=== PATIENT | female | born 1945 | race Caucasian/White ===

== ENCOUNTER 2016-11-13 12:10 | Inpatient (IN) | payer MEDICARE, OTHER ==
[~2016-11-13] VITALS: Ht 162.6 cm; Wt 120.1 kg
--- NOTE | ~2016-11-13 | CON ---
PATIENT'S NAME: JAYSON TUTTLE [facility] AGE: 71 Y [address] ROOM: [address] [address] LOCATION: GICU ADMIT DATE: 11/13/2016 Consultation DISCHARGE DATE: FAMILY PHYSICIAN: Alejandro Alanis MD ATTENDING PHYSICIAN: JELENA TO DATE OF CONSULTATION: 11/17/2016 REFERRING PHYSICIAN: YOKO MORALES MD REFERRING PROVIDER: Dr. Cox. REASON FOR CONSULTATION: Anemia. HISTORY OF PRESENT ILLNESS: This is a very pleasant 71-year-old female, who is well known to our service as she previously had been seen in August 2016. The patient at that time did undergo complete workup for anemia. She did undergo an upper endoscopy on 08/26/2016. At that time, whitish exudate along the length of the esophagus was washed and removed with underlying mucosa being normal. Scattered erosions, petechial hemorrhages, and erythema of the body and antrum were seen where multiple biopsies were done. The patient did undergo colonoscopy and found to have multiple polyps, though were not removed secondary to INR. The patient was brought back the next day on 08/27/2016. At that time, a limited prep was seen throughout the colon as polyps were removed via cold biopsy then polypectomy. A single semipedunculated polyp was found in the descending colon as well as hemostasis achieved with a hemostatic clip. Diverticulosis was also noted throughout the colon. The patient most recently was admitted to [facility] for hypotension after a round of hemodialysis. The patient did experience dizziness at this time as she was admitted for further workup. We were asked to see in consultation for the patient's anemia of chronic disease as well as positive Hemoccult stool. The patient was seen and examined. The patient denies any change in color of her bowel habits. She denies any evidence of blood loss. The patient denies any chest pain, chest pressure, shortness of breath, or weight loss. She does complain of some mild discomfort in her lower abdomen, though the patient does state that she had difficulty with urinating and was ultimately found to have UTI. The patient denies any acute abdominal pain, nausea, vomiting, or hematemesis. PAST MEDICAL HISTORY: Anemia of chronic disease; end-stage renal disease, on hemodialysis; history of chronic diastolic congestive heart failure; hypertension; diabetes mellitus PATIENT'S NAME: PARAGJYASON [facility] AGE: 71 Y [address] ROOM: [place] [address] LOCATION: GICU ADMIT DATE: 11/13/2016 Consultation DISCHARGE DATE: FAMILY PHYSICIAN: Alejandro Alanis MD ATTENDING PHYSICIAN: JELENA TO type 2, insulin dependent; diabetic neuropathy; diabetic nephropathy; hypothyroidism; nonobstructive coronary artery disease; history of sick sinus syndrome, status post pacemaker implantation; paroxysmal atrial fibrillation, on long-term anticoagulation in the form of Eliquis; esophagitis; history of decompensated heart failure with fluid overload; pulmonary hypertension; nonalcoholic steatohepatitis; and morbid obesity. PAST SURGICAL HISTORY: Cholecystectomy, appendectomy, tunneled dialysis catheter, placement of dual- chamber pacemaker implantation in 2014, right total knee arthroplasty, colonoscopy and upper endoscopy in August 2016. SOCIAL HISTORY: The patient is a resident at [facility]. She is . She has no history of alcohol, tobacco, or illicit drug use. FAMILY HISTORY: The patient's parents both had diabetes. ALLERGIES: OXYCODONE. CURRENT MEDICATIONS: Please refer to the medication administration record. REVIEW OF SYSTEMS: A 10-point review of systems was completed. All were negative except for those identified in the history of present illness. PHYSICAL EXAMINATION: GENERAL: This is a very pleasant 71-year-old female, seen in intensive care, lying in bed, who appears to be in no acute distress. VITAL SIGNS: Temperature 98.2, pulse 73, respirations of 27, blood pressure 102/52, and oxygen saturation is 96% on 3 L nasal cannula. SKIN: Bennett, warm, and dry. No jaundice. HEENT: Head is normocephalic and atraumatic. Pupils are equal, round, and reactive to light. Sclerae are clear. Nonicteric. Oral mucosa is pink and moist. No thyromegaly. NECK: Soft and supple. CARDIOVASCULAR: Regular. Normal S1 and S2. RESPIRATORY: Respirations even and unlabored. LUNGS: Clear to auscultation. ABDOMEN: Soft, round, nontender, and nondistended. Bowel sounds positive x4 quadrants. MUSCULOSKELETAL: No muscle weakness or atrophy. PATIENT'S NAME: PARAG [facility] AGE: 71 Y [address] ROOM: [place] [address] LOCATION: GICU ADMIT DATE: 11/13/2016 Consultation DISCHARGE DATE: FAMILY PHYSICIAN: Alejandro Alanis MD ATTENDING PHYSICIAN: JELENA TO EXTREMITIES: No clubbing or cyanosis. NEUROLOGIC: Grossly nonfocal. LABS AND DIAGNOSTICS: Laboratory obtained on 11/17/2016 showed a white blood cell count of 12.1, hemoglobin of 9.0, hematocrit of 29.4, and platelet of 170. Chemistry panel includes a glucose of 284, BUN of 37, creatinine of 3.3, sodium 126, potassium of 3.9, chloride of 93, CO2 of 19, albumin of 3.3, phosphorus of 4.4, and magnesium of 2.2. The patient did also have a CT of her thorax that is currently pending at this time. ASSESSMENT AND PLAN: Again, this is a very pleasant 71-year-old female with multiple comorbidities. We were asked to see in consultation for the patient's anemia as well as positive occult stool. The patient recently underwent a full anemia workup in August 2016 including an upper endoscopy and colonoscopy with multiple polyps noted. At this time, the patient's hemoglobin has been stable as we do recommend at this time to continue monitoring the hemoglobin. If acute blood loss is seen and/or drop in the patient's hemoglobin, further workup may be warranted, though no endoscopy is recommended at this time. We will continue to monitor the patient. This was discussed with Dr. Cox as he is in agreement as well. Thank you for this consult and allowing us to participate in the care of this patient. We will continue monitor, evaluate, and treat as appropriate. AGUEDA GARZA APRN FOR MD HOMA PETE/modl /[id number] d: 11/17/162010 t: 11/20/16 1303, CONSULTATION REPORT
--- NOTE | ~2016-11-13 | ECHO ---
Transthoracic Echocardiography Report (TTE) Demographics Patient Name JAYSON TUTTLE Date of Study 11/16/2016 Patient Number [id number] Visit Number [id number] Date of 1945 Room Number G6202 Gender Female Number Age 71 year(s) Referring Ariana Fuchs Cultural Historian Cate Reddy, Physician RT,RVT,RDCS Physician Interpreting Samiranjanaradha Moore Store Receiving Specialist Physician Supervising Ordering [facility] Patrick Fuchs MD, MD/MLP Physician Nurse Stress Fly Worker Conclusions Contractility Score Summary Normal Left Ventricular contractility was noted. Summary The estimated left ventricular ejection fraction is 60%. The left atrium is moderate to severely dilated Moderate concentric left ventricular hypertrophy. The right atrium is mildly dilated. Dilated IVC with poor inspiratory collapse consistent with elevated RA pressure. Mildly dilated right ventricle. Moderate tricuspid regurgitation by color Doppler. There is severe pulmonary hypertension. The pulmonary pressure (RVSP) is 68 mmHg. Procedure Type of Study TTE procedure:2D Echocardiogram, M-Mode, Doppler , Color Doppler. Procedure Date Date: 11/16/2016 Start: 11:55 AM Study Location: Inpatient Portable Technical Quality: Adequate visualization Indications:Hypotension. Additional Indications:sepsis Appropriate Use Criteria: 9 Patient Status: Routine HR: 70 bpm BP: 132/38 mmHg Allergies - No known allergies. M-Mode/2D Measurements LV Diastolic Dimension: 3.3 cm LV Systolic Dimension: 2.04 cm LV Septum Diastolic: 1.66 cm LV Septum Systolic: 2.28 cm LV PW Diastolic: 1.34 cm LV PW Systolic: 2.62 cm Cardiac Output: 2.92 l/min AO Root Dimension: 3.1 cm LA Dimension: 4.9 cm EF Estimated: 70 % LA volume: 91 ml RV Base: 4.8 cm LVOT: 1.8 cm RV Mid: 4.2 cm LVOT VTI: 16.4 cm RV Length: 7 cm LV Stroke volume: 41.71 ml TDI-S': 9.1 cm/s Doppler Measurements AV Peak Velocity: 1.37 m/s MV Peak E-Wave: 1.25 m/s AV Peak Gradient: 7.51 mmHg MV Peak A-Wave: 0.63 m/s AV Mean Gradient: 4 mmHg MV E/A Ratio: 1.99 LVOT Peak Velocity: 0.82 m/s MV P1/2t: 56 msec TR Gradient:32.49 mmHg PV Peak Velocity: 0.92 m/s Estimated RAP:10 mmHg PV Peak Gradient: 3.36 mmHg Estimated RVSP: 42 mmHg Estimated PASP: 42.49 mmHg E' Lateral Velocity: 0.11 m/s A' Lateral Velocity: 0.04 m/s MV E/E' Ratio: 11.2 Findings Left Ventricle Moderate concentric left ventricular hypertrophy. Right Ventricle Mildly dilated right ventricle. Left Atrium The left atrium is moderate to severely dilated Right Atrium The right atrium is mildly dilated. Dilated IVC with poor inspiratory collapse consistent with elevated RA pressure. Mitral Valve Mild mitral regurgitation by color Doppler. Mild to moderate mitral annular calcification. Aortic Valve The aortic valve is mildly sclerotic. Tricuspid Valve Moderate eccentric tricuspid regurgitation by color Doppler. There is severe pulmonary hypertension. The pulmonary pressure (RVSP) is 68 mmHg. Pulmonic Valve Trivial pulmonic valve regurgitation by color Doppler. Pericardial Effusion No evidence of pericardial effusion. Miscellaneous Visualized portions of the aortic root and ascending aorta appear normal in size. Pleural Effusion No evidence of pleural effusion. Contractility Score LV regional wall motion:(0-Non visualized 1-Normal 2-Hypokinesis 3-Akinesis 4-Dyskinesis 5-Aneurysm) Signature dtt: FLOR MONTEMAYOR dtd: 11/16/16 1155 Physician Self Edit
--- NOTE | ~2016-11-13 | DS ---
PATIENT'S NAME: JAYSON TUTTLE [facility] AGE: 71 Y [address] ROOM: [id number] [place], [place] [address] LOCATION: GPCU ADMIT DATE: 11/13/2016 Discharge Summary DISCHARGE DATE: FAMILY PHYSICIAN: Alejandro Alanis MD ATTENDING PHYSICIAN: Jelena Fournier PRINCIPAL DIAGNOSES: 1. Shock, secondary to sepsis versus volume depletion. 2. Adrenal insufficiency, leading to hypotension. 3. End-stage renal disease on hemodialysis. 4. Paroxysmal atrial fibrillation. 5. Lnscx-og-wrhcmvy anemia. 6. Hypertension. 7. Coronary artery disease. 8. Type 2 diabetes. HOSPITAL COURSE: This is a 71-year-old female with recurrent admissions to the hospital who initially presented with generalized malaise, fatigue, and hypotension and admitted for a sepsis workup. Initially urine studies did show some signs of an infection causing further hypotension; however, on further workup, this was not to be the case, but she did receive antibiotics for a few days until she was visited by ID speciality and antibiotics were stopped at that time. The patient from infection point of view did well even after antibiotics were stopped; however, her blood pressures continued to stay low, which required her to get admitted to the ICU on vasopressors. Due to her low blood pressures, dialyzing the patient for her dialysis schedule had been a challenge as well. Infectious workup several days following her admission continued to be negative as well. At that point, Stim test for adrenal insufficiency workup was conducted, which showed possible signs of an adrenal insufficiency that caused her persistent hypotension. At which point, I put the patient on stress-dose of steroids with Decadron, which the patient's blood pressure responded greatly to. I had been able to slowly taper the Decadron down and eventually switch it to p.o. prednisone 5 mg daily since yesterday and her blood pressure had been great since. At this point, the patient is to be discharge on low-dose prednisone 5 mg daily and is to follow up as outpatient with primary care physician for monitoring of her blood pressure. Of note, the patient's blood pressure over the last 2 days had been on the high-side and her home blood pressure medication are being resumed including increasing her metoprolol to 25 mg b.i.d. The patient during her hospitalization is also noted to be in paroxysmal AFib. Cardiology was involved in the case and rate was controlled with increasing her beta- pranav regimen and is also on amiodarone and the patient is rate-controlled and stable at this point on 25 metoprolol b.i.d. as well as amiodarone 200 mg daily. The patient was also worked up for anemia concerning for GI blood loss and had an EGD done, which showed a duodenal ulcer that was nonbleeding. The PATIENT'S NAME: JAYSON TUTTLE [facility] AGE: 71 Y [address] ROOM: [address] [place] [address] LOCATION: GPCU ADMIT DATE: 11/13/2016 Discharge Summary DISCHARGE DATE: FAMILY PHYSICIAN: Alejandro Alanis MD ATTENDING PHYSICIAN: Jelena Fournier patient's hemoglobin throughout her stays had stayed stable and Eliquis, which the patient is on at home, have been resumed at 5 mg b.i.d., and her hemoglobin had stayed stable. The patient overall clinically looks much, much better, blood pressures have been stable, and her clinical response to her blood pressures getting better is very consistent to the prednisone that continued to help her. The patient is also a long-time diabetic and outpatient regimen for her long-acting insulin was over 50 units b.i.d., but had been using 25 and then 30 units of Levemir nightly and I have increased this dose to 35 units nightly now and this is to be up titrated until her fasting blood sugars are less than at least 200. DISPOSITION: [facility]. FOLLOW UP: Follow up with Cardiology and Nephrology as well as PCP in 1-2 weeks. The patient is planned to be discharged from the hospital on 11/27/2016 and further additions to discharge summary per discharging physician on that date. JELENA FOURNIER MD BG/modl /[id number] d: 11/27/16 0530 t: 12/12/16 0925, DISCHARGE SUMMARY
--- NOTE | ~2016-11-13 | CON ---
PATIENT'S NAME: JAYSON TUTTLE [facility] AGE: 71 Y [address] ROOM: [place] [address] LOCATION: GICU ADMIT DATE: 11/13/2016 Consultation DISCHARGE DATE: FAMILY PHYSICIAN: Alejandro Alanis MD ATTENDING PHYSICIAN: JELENA TO DATE OF CONSULTATION: 11/17/2016 REFERRING PHYSICIAN: KALEB CULP MD CONSULTING PHYSICIAN: Kaleb Culp M.D. REASON FOR CONSULT: Recent history of vaginal bleeding in light of unexplained hypotension and anemia. HISTORY OF PRESENT ILLNESS: The patient is a pleasant 71-year-old female with end-stage renal disease on dialysis 4 times a week who was admitted on the of this month for hypotension after dialysis. The patient was also noted to be anemic. It was reported in the senior care that she was passing golf-ball size clots from what was thought to be her vagina prior to admission. She has not had any bleeding vaginally since admission. She denies any blood in her stools. She does report that 2 weeks ago in the senior care she was told she had some vaginal bleeding, which occurred for a couple of days, that was just reported to her as streaks by the nursing staff. The patient does report having a vaginal hysterectomy and bilateral salpingo-oophorectomy by Dr. Starr sometime in 2003 or 2004. She did not have any anterior-posterior repair per her report. PAST MEDICAL HISTORY: 1. End-stage renal disease. 2. Type 2 diabetes. 3. Paroxysmal AFib. 4. Coronary artery disease. 5. Hypertension. 6. Morbid obesity. PAST SURGICAL HISTORY: 1. Cholecystectomy. 2. Appendectomy. 3. Total vaginal hysterectomy and bilateral salpingo-oophorectomy. 4. Dialysis catheter placement. 5. Pacemaker implantation. 6. Right total knee arthroplasty. PATIENT'S NAME: JAYSON TUTTLE [facility] AGE: 71 Y [address] ROOM: [place] [address] LOCATION: [facility] ADMIT DATE: 11/13/2016 Consultation DISCHARGE DATE: FAMILY PHYSICIAN: Alejandro Alanis MD ATTENDING PHYSICIAN: JELENA TO FAMILY HISTORY: Noncontributory. MEDICATIONS: Reviewed. SOCIAL HISTORY: The patient lives at [facility]. She is . No history of drugs, alcohol, or tobacco use. REVIEW OF SYSTEMS: Negative except as noted in HPI. PHYSICAL EXAMINATION: A bedside pelvic examination was performed. The patient was placed on a bed atkinson with the blanket. A speculum was inserted in the vagina. The cuff appeared intact. No lesions were noted throughout the whole vagina and no areas of bleeding were noted. She does have thick white vaginal discharge consistent with vaginal candidiasis. The patient's urethra and urethral meatus appears normal. No lesions on the labia minora. There is an excoriation with some dried blood on the very superior edge of the labia majora close to the mons pubis. ASSESSMENT: The patient is a 71-year-old female with hypotension and anemia with a history of vaginal bleeding 2 weeks ago. RECOMMENDATIONS: I do not find any signs of active bleeding that could be contributing to her anemia or hypotension at this time. She does have signs of vaginal candidiasis and I have spoken with Dr. Cox about this. I recommend treatment with Diflucan orally and the dose can be repeated in 72 hours later. MD DAVID ORTIZ/minh /[id number] d: 11/17/16 2301 t: 11/20/16 0943, CONSULTATION REPORT
--- NOTE | ~2016-11-13 | HP ---
PATIENT'S NAME: JAYSON TUTTLE [facility] AGE: 71 Y [address] ROOM: [place] [address] LOCATION: GPCU ADMIT DATE: 11/13/2016 History & Physical DISCHARGE DATE: FAMILY PHYSICIAN: Alejandro Alanis MD ATTENDING PHYSICIAN: JELENA TO DATE OF SERVICE: CHIEF COMPLAINT: Hypotension, dizziness. HISTORY OF PRESENT ILLNESS: This is a 71-year-old female with end-stage renal disease on dialysis, paroxysmal AFib, type 2 diabetes, coronary artery disease, left lower leg edema, and venous insufficiency presents from hemodialysis after being found to be hypotensive. Report is that the patient's blood pressure was in 50s/40s at the Dialysis Center and the patient tells me that she felt dizzy, lightheaded, and confused when that occurred. The patient does have history of having a low blood pressures during dialysis sessions. The patient was recently started on dialysis at the end of August last year and she has had problems with low blood pressures on and off throughout her dialysis. This particular time was different in the sense that she did have symptoms with it noting dizziness, blurring of vision, generalized weakness, and fatigue while lying in the chair for the dialysis. The patient also describes having spasm like sensations in her lower abdomen and also describes noticing some blood in her urine over the past week or so. The patient also describes having a cough for the past 4 weeks and cough is mostly dry. Denies any associated shortness of breath, fever, or chills. Denies any sick contact. The patient does describe having loose bowel movements over the past 5-7 days as well. PAST MEDICAL HISTORY: End-stage renal disease on hemodialysis, paroxysmal AFib, coronary artery disease, type 2 diabetes, essential hypertension, morbid obesity, and venous stasis dermatitis. FAMILY HISTORY: Significant for diabetes in both parents. SOCIAL HISTORY: The patient is and recently moved to a intermediate after starting dialysis. No significant history of alcohol or tobacco use. REVIEW OF SYSTEMS: A 10-point review of systems was conducted and were all negative except as mentioned in the HPI. PATIENT'S NAME: JAYSON TUTTLE [facility] AGE: 71 Y [address] ROOM: [place] [address] LOCATION: GPCU ADMIT DATE: 11/13/2016 History & Physical DISCHARGE DATE: FAMILY PHYSICIAN: Alejandro Alanis MD ATTENDING PHYSICIAN: JELENA TO PHYSICAL EXAMINATION: VITAL SIGNS: Temperature 97.6, pulse 72, blood pressure 116/58, and saturating 95% on room air. GENERAL: The patient looks lethargic, but is awake, alert, and oriented, in no apparent distress. HEENT: Dry mucous membranes, but no scleral icterus or conjunctival pallor noted. SKIN: Chronic venous insufficiency ulcers and rash noted on bilateral lower extremities. CHEST: Clear to auscultation bilaterally. HEART: S1, S2, regular rate and rhythm. ABDOMEN: Soft nontender, nondistended with positive bowel sounds. MUSCULOSKELETAL: No swelling or redness noted in all joints and upper and lower extremities. NEURO: Grossly nonfocal. LABORATORY DATA: Chest x-ray is clear. White count 15. ASSESSMENT AND PLAN: 1. Severe sepsis with a blood pressure prior to presentation of 50s/40s, white blood cell count of 15,000. Her symptoms source does appear to be urinary tract infection. The patient does make urine and I am awaiting for her to give us a urine sample. In the meantime, we will go ahead and start on Zosyn empirically. We will also await blood culture results and we will gently give fluids as needed. The patient's blood pressure right now is in the 110s/70s. I will invite Nephrology Dr. Nguyen to come follow the patient during hospitalization as well. 2. End-stage renal disease on hemodialysis. I will have Dr. Nguyen come follow the patient during hospitalization. 3. Type 2 diabetes. Continue the patient's home insulin regimen with the sliding scale insulin in addition. 4. Paroxysmal atrial fibrillation. Continue the patient's home anticoagulation. 5. Chronic diastolic congestive heart failure. The patient is asymptomatic from that since. 6. Venous stasis dermatitis, have close followup with Wound Care as outpatient, and had a visit yesterday and all went well. JELENA TO MD PATIENT'S NAME: JAYSON TUTTLE [facility] AGE: 71 Y [address] ROOM: [address] [place] [id number] LOCATION: [facility] ADMIT DATE: 11/13/2016 History & Physical DISCHARGE DATE: FAMILY PHYSICIAN: Alejandro Alanis MD ATTENDING PHYSICIAN: JELENA TO /[id number] D: [id number] T: [id number] HISTORY & PHYSICAL
--- NOTE | ~2016-11-13 | CON ---
PATIENT'S NAME: JAYSON TUTTLE [facility] AGE: 71 Y [address] ROOM: [place] [address] LOCATION: GPCU ADMIT DATE: 11/13/2016 Consultation DISCHARGE DATE: FAMILY PHYSICIAN: Alejandro Alanis MD ATTENDING PHYSICIAN: JELENA TO DATE OF CONSULTATION: 11/14/2016 REFERRING PHYSICIAN: Cooper Starr MD This is a [facility] ([place], [place]) Nephrology consultation. REASON FOR CONSULTATION: End-stage renal disease, requiring hemodialysis therapy. HISTORY OF PRESENT ILLNESS: This is a 71-year-old female patient with a past medical history of end-stage renal disease, on hemodialysis on Sunday, Sunday, and Sunday at [facility]. The patient was admitted for an episode of hypotension and dizziness while on hemodialysis therapy. This episode was witnessed by myself, and the patient was having routine dialysis with 28 minutes left on her run. She began to veer to the right and became unresponsive for probably 30 to 40 seconds. Blood pressures at that time are 50 systolically. The patient was given 1.5 L of fluid back, and blood pressures increased to the 120 systolically. The patient became more alert at that time. She did have 2 episodes of vomitus while at [facility]. The patient does have a history of hypotension of hemodialysis and does take midodrine for this. She does usually run hemodialysis on Sunday, Sunday, Sunday, and Sunday for ultrafiltration. The patient does have a past medical history of end-stage renal disease secondary to diabetic nephropathy. The patient did report today at hemodialysis prior to this episode that she was having vaginal bleeding at least 3 episodes earlier this week. PAST MEDICAL HISTORY: As listed above includin. End-stage renal disease, on hemodialysis therapy 4 days a week. 2. History of chronic diastolic congestive heart failure. 3. Hypertension. 4. Diabetes mellitus type 2, insulin dependent. 5. Diabetic neuropathy. 6. Diabetic nephropathy. 7. Hypothyroidism. 8. Nonobstructive coronary artery disease. PATIENT'S NAME: JAYSON TUTTLE [facility] AGE: 71 Y [address] ROOM: [place] [address] LOCATION: GPCU ADMIT DATE: 11/13/2016 Consultation DISCHARGE DATE: FAMILY PHYSICIAN: Alejandro Alanis MD ATTENDING PHYSICIAN: JELENA TO 9. History of sick sinus syndrome, status post pacemaker implantation. 10. Paroxysmal atrial fibrillation. 11. Long-term anticoagulation in the form of Eliquis. 12. Esophagitis. 13. History of decompensated heart failure with fluid overload. 14. Pulmonary hypertension. 15. Nonalcoholic steatohepatitis. 16. Morbid obesity. 17. Hypothyroidism. PAST SURGICAL HISTORY: As listed above includin. Cholecystectomy. 2. Appendectomy. 3. Tunneled dialysis catheter placement. 4. Dual-chamber pacemaker implantation in 2014. 5. Right total knee arthroplasty. SOCIAL HISTORY: The patient is a resident of [facility]. She is . She has no remote history of alcohol or tobacco use. Denies any illicit drug use. FAMILY HISTORY: Reviewed and is noncontributory for any history of renal disease or dialysis. It is significant for diabetes in both parents. REVIEW OF SYSTEMS: GENERAL: Complains of fatigue. EYES: No double vision or blurred vision. NOSE: No epistaxis or rhinorrhea. MOUTH: No gingival bleeding. THROAT: No sore throat, hoarseness, or cough. RESPIRATORY: Denies wheezing or hemoptysis. CARDIOVASCULAR: Denies chest pain or palpitations. GASTROINTESTINAL: Emesis x2. GENITOURINARY: Continues to make urine despite hemodialysis, vaginal bleeding reported. MUSCULOSKELETAL: Denies any new arthralgias or myalgias. NEUROLOGICAL: There is a complete Delmy lift for ambulation. Has started walking with a walker. HEMATOLOGICAL: Reports vaginal bleeding. On Eliquis therapy. Does have a history of hemorrhoids. Occasional bleeding per the patient. IMMUNOLOGICAL: Denies a history of recent infections. PHYSICAL EXAMINATION: VITAL SIGNS: Blood pressure 124/57, pulse is 72, respirations 18, temperature is 98.3. GENERAL: On exam, the patient is alert and oriented to person, place, and time. She appears to be more alert currently than previously examined at dialysis. She is in no acute distress. HEENT: Her head is normocephalic and atraumatic. Eyes: Pupils are equal, round, and reactive to light and accommodation. EOMs are intact. Nose midline. Mouth, no gingival bleeding. Throat is without lymphadenopathy, carotid bruits, or JVD. NECK: Soft and supple, full.PATIENT'S NAME: JAYSON TUTTLE [facility] AGE: 71 Y [address] ROOM: [id number] [place] [address] [facility] ADMIT DATE: 11/13/2016 Consultation DISCHARGE DATE: FAMILY PHYSICIAN: Alejandro Alanis MD ATTENDING PHYSICIAN: JELENA TO LUNGS: Lung sounds are diminished in the bases bilaterally. The patient is on room airy. CARDIOVASCULAR: Regular rate and rhythm with distant heart tones noted. Unable to appreciate any murmurs, rubs, or thrills. ABDOMEN: Obese, soft. Bowel sounds are positive. EXTREMITIES: No peripheral edema, clubbing, or cyanosis. NEUROLOGIC: Cranial nerves 2 through 12 are grossly intact. LABORATORY AND X-RAY: Chest x-ray is clear. Labs: Hemoglobin 13.0, hematocrit 41.3, WBCs 15.4, and platelets 225. Sodium 127, potassium 4.2, chloride 89, CO2 of 21, BUN is 41, creatinine 3.2, and glucose is 233. INR is 1.0. Troponin is 0.177, repeat is 0.156. Magnesium is 2.4. Blood cultures are currently pending. C. diff is negative. Urine culture is currently pending. CRP is 16.4. Free T4 is 1.7. TSH is 9.09. ASSESSMENT AND PLAN: 1. End-stage renal disease, on hemodialysis therapy. We will obtain the patient's outpatient clinical record and provide hemodialysis accordingly. 2. We will utilize albumin as well as midodrine for hypotension. 3. Anemia of chronic kidney disease. The patient is currently on Mircera as an outpatient. We will dose with Epogen while inpatient. 4. Iron-deficiency anemia. The patient will receive Venofer with dialysis. 5. Paroxysmal atrial fibrillation. The patient is currently on amiodarone. We will interrogate the patient's dual-chamber pacemaker, further recommendations. 6. Long-term anticoagulation in the form of Eliquis. We will continue at this time. 7. Vaginal bleeding. We will consult CHECKOUT SUPERVISOR for further recommendations. 8. Type 2 diabetes. The patient is to continue sliding scale insulin at this time. This patient has been seen and assessed by Dr. Nguyen. Her care is being conducted in consultation with Dr. Nguyen as well as me. Further recommendations will be forthcoming. JESSICA LOWE DNP, EVETTE FOR MD MITRA CHUNG/minh /[id number] d: 11/15/162008 t: 12/06/16 1611, CONSULTATION REPORT
--- NOTE | ~2016-11-13 | OR ---
PATIENT'S NAME: JAYSON TUTTLE [facility] AGE: 71 Y [address] ROOM: [place] [address] LOC[facility]: [facility] ADMIT DATE: 11/13/2016 OR/Procedure Report DISCHARGE DATE: FAMILY PHYSICIAN: Alejandro Alanis MD ATTENDING PHYSICIAN: JELENA TO SURGEON: Kel Goodman MD NETBACKUP ADMINISTRATOR: DATE OF PROCEDURE: 11/23/2016 PREOPERATIVE DIAGNOSIS: End-stage renal disease. POSTOPERATIVE DIAGNOSIS: End-stage renal disease. PROCEDURE PERFORMED: Right arm brachiocephalic arteriovenous fistula. MOLD YARD CRANE OPERATOR: OR staff. ANESTHESIA: General. ESTIMATED FLUID LOSS: 10 mL. OPERATIVE FINDINGS: Good thrill and bruit in the fistula. Strong radial and ulnar signals at the end of the case. DESCRIPTION OF PROCEDURE: The patient was brought to the operating room, placed supine on the operating table, and prepped and draped in a sterile manner. Preoperative time-out was performed. The patient received preoperative antibiotics. We made a standard incision 2 cm proximal to the antecubital fossa, dissected down to the fascia, incised the fascia in a longitudinal manner, and dissected out the brachial artery in a 360-degree fashion. We then did a similar dissection of the cephalic vein. We ligated and transected it distally. We gave 5000 units of heparin. We made an arteriotomy on the artery to a size of 4 mm and did a standard 6-0 Prolene anastomosis. We removed the clamps. There was excellent flow in the fistula. There were strong radial and ulnar signals which were all confirmed with the use of Doppler. Protamine was used to reverse the heparin. Thrombin was used locally in the wound. Deep layers were closed with 2-0 and 3-0 Vicryl. Skin was closed with running 4-0 Monocryl. The patient tolerated the procedure well and was transferred to the recovery room and then home later that day. KEL GOODMAN MD PATIENT'S NAME: JAYSON TUTTLE [facility] AGE: 71 Y [address] ROOM: [place] [address] LOCATION: [facility] ADMIT DATE: 11/13/2016 OR/Procedure Report DISCHARGE DATE: FAMILY PHYSICIAN: Alejandro Alanis MD ATTENDING PHYSICIAN: JELENA TO/minh /[id number] d: 11/23/16 1756 t: 11/24/16 1011, OPERATIVE SUMMARY
--- NOTE | ~2016-11-13 | CON ---
PATIENT'S NAME: JAYSON TUTTLE [facility] AGE: 71 Y [address] ROOM: [place] [address] LOCATION: GICU ADMIT DATE: 11/13/2016 Consultation DISCHARGE DATE: FAMILY PHYSICIAN: Alejandro Alanis MD ATTENDING PHYSICIAN: JELENA TO DATE OF CONSULTATION: 11/16/2016 REFERRING PHYSICIAN: Cooper Starr MD CARDIOLOGY CONSULTATION REASON FOR CARDIOLOGY CONSULTATION: Hypotension. HISTORY OF PRESENT ILLNESS: This is a 71-year-old female, familiar to [facility]. She was last seen by Dr. Davies in the end of October 2016 for a preoperative evaluation before a fistula placement. This consult was requested due to the patient experiencing some hypotension after a round of hemodialysis. She denies any chest pain, palpitation, or presyncope prior to the hypotension as well as during. She does have complaints of nausea, while they have the patient in Trendelenburg and during initiation of IV dopamine. At the time of this consult, she has no real complaints. She is resting comfortably on IV Levophed and the dopamine has been weaned off successfully. Otherwise, she denies no recent changes to her health and has no real complaints at this time. PAST MEDICAL HISTORY: 1. Chronic diastolic congestive heart failure. 2. Nonobstructive coronary artery disease. 3. Paroxysmal atrial fibrillation. 4. Hypertension. 5. Hypothyroidism. 6. Chronic kidney disease, on hemodialysis. 7. Diabetes mellitus, type 2 with insulin use. PAST SURGICAL HISTORY: 1. Cholecystectomy. 2. Appendectomy. FAMILY HISTORY: Both of her parents had a positive history of heart disease as well as diabetes mellitus. SOCIAL HISTORY: PATIENT'S NAME: JAYSON TUTTLE [facility] AGE: 71 Y [address] ROOM: [place] [address] LOCATION: GICU ADMIT DATE: 11/13/2016 Consultation DISCHARGE DATE: FAMILY PHYSICIAN: Alejandro Alanis MD ATTENDING PHYSICIAN: JELENA TO The patient denies ever using tobacco. She also denies alcohol or illicit drug use. CURRENT MEDICATIONS: 1. Heparin IV with dialysis. 2. Levophed IV drip for hypotension. 3. Flonase 50 mcg 2 sprays intranasally every day in the evening. 4. Aspirin 81 mg p.o. daily. 5. Colace 100 mg p.o. twice daily. 6. Amiodarone 200 mg p.o. daily. 7. Effexor XR 150 mg p.o. daily. 8. Levothyroxine 137 mcg p.o. daily. 9. Lipitor 40 mg p.o. daily in the evening. 10. MiraLAX 17 g p.o. twice daily. 11. ProAmatine 10 mg p.o. 3 times daily. 12. Protonix 40 mg p.o. daily. 13. Zyloprim 200 mg p.o. daily. 14. Epogen 10,000 units subcutaneous with dialysis. 15. Levemir 50 units subcutaneous twice daily. 16. NovoLog subcutaneous on a mild sliding scale per a.c. and at bedtime Accu-Cheks. 17. NovoLog 8 units subcutaneous 3 times daily with meals. MEDICATION ALLERGIES: Oxycodone causing rash and hives. REVIEW OF SYSTEMS: Pertinent positive review of systems noted in the HPI. All other review of systems evaluated and negative. LABORATORY DATA AND IMAGING STUDIES: Diagnostics: CMS evaluation shows a sodium of 133, potassium 3.8, BUN of 25, creatinine 2.4, and glucose of 300. She has a magnesium of 2.3. CBC evaluation shows a white blood cell count of 6.8, hemoglobin of 8.9, hematocrit of 28.1, and platelets of 154,000. PHYSICAL EXAMINATION: VITAL SIGNS: Temperature 98.2, pulse 78, respirations 19, blood pressure 130/37, and O2 saturation 94% on room air. The patient weighs 117.8 kg. SKIN: [place], warm, and dry. EYES: Sclerae clear. No xanthelasmas. ENT: Oral mucosa is pink and moist. No jugular venous distention. No carotid bruits. CHEST: Respirations are even and unlabored. LUNGS: Clear to auscultation. PATIENT'S NAME: JAYSON TUTTLE [facility] AGE: 71 Y [address] ROOM: [id number] [place], [place] [address] LOCATION: [facility] ADMIT DATE: 11/13/2016 Consultation DISCHARGE DATE: FAMILY PHYSICIAN: Alejandro Alanis MD ATTENDING PHYSICIAN: JELENA TO HEART: Regular rate and rhythm. Normal S1 and S2. No murmurs, rubs, or gallops. ABDOMEN: Soft and nontender. MUSCULOSKELETAL: Equal muscle strength to upper and lower extremities bilaterally against resistance. EXTREMITIES: Peripheral pulses palpable. No clubbing or cyanosis noted. Does have trace lower extremity edema present. PSYCHIATRIC: Alert and oriented. Mood and affect are appropriate. IMPRESSION AND PLAN: Per Dr. Davies: 1. Hypotension after hemodialysis. We will check an echocardiogram to fully evaluate her ejection fraction as well as look for wall-motion or valvular abnormalities. Her blood pressure is much improved with IV vasopressors and we will continue to wean those as appropriate. 2. Chronic diastolic congestive heart failure. Currently, appears euvolemic. 3. End-stage renal disease, on hemodialysis. She does have plans to receive a fistula in the near future. 4. Coronary artery disease, history of nonobstructive. No complaints of angina and she is tolerating her aspirin and her statin. 5. Insulin-dependent diabetes mellitus. 6. Paroxysmal atrial fibrillation with long-term anticoagulation with Eliquis. 7. History of a permanent pacemaker. This is a 71-year-old female, who had a presyncopal episode during dialysis due to hypotension on Sunday. Most likely due to the dialysis induced hypotension. She is feeling better at this time with IV vasopressors. Her echocardiogram shows a normal left ventricular function. She does have notation of severe pulmonary hypertension. We will continue to monitor, evaluate, and treat as appropriate. Thank you for this consult. Thank you for allowing [facility] to interact in the care of this patient. ALEC WALKER APRN FOR MD ETELVINA CHING/minh /[id number] d: 11/17/16 1132 t: 12/06/16 1604, CONSULTATION REPORT
--- NOTE | ~2016-11-13 | DS ---
PATIENT'S NAME: JAYSON UTTTLE [facility] AGE: 71 Y [address] ROOM: [place] [address] LOCATION: GPCU ADMIT DATE: 11/13/2016 Discharge Summary DISCHARGE DATE: 11/28/2016 FAMILY PHYSICIAN: Alejandro Alanis MD ATTENDING PHYSICIAN: Phyllis Fournier ADDENDUM: This is an addendum to discharge summary dictated by Dr. Fournier. Please see Dr. Fournier's detailed discharge summary. FINAL DIAGNOSES: 1. Hypotension, resolved. 2. Shock secondary to sepsis versus volume depletion, resolved. 3. Adrenal insufficiency, leading to hypotension, resolved. 4. End-stage renal disease, on hemodialysis. 5. Urinary tract infection. 6. Acute on chronic anemia. 7. Hypertension. 8. Paroxysmal atrial fibrillation. 9. Long-term anticoagulation. 10. Coronary artery disease. 11. Type 2 diabetes. 12. Generalized weakness. 13. Vaginal bleeding. 14. Gastrointestinal bleeding, resolved. 15. End-stage renal disease, on hemodialysis. CONSULTATIONS: 1. Vascular Surgery, Dr. Goodman. 2. Cardiology, Dr. Davies. 3. Nephrology. PROCEDURES PERFORMED: 1. EGD showing duodenal ulcer, no active bleeding. 2. Right arm brachiocephalic arteriovenous fistula placement by Dr. Goodman on 11/23/2016. REASON FOR ADMISSION: This is a 71-year-old female, who presented with shock. The patient was found to have hypotension during dialysis. She was then further admitted to the ICU. She did receive antibiotics and ID was involved. She was on vasopressors initially. Her blood pressure later resolved, and she was able to be weaned off vasopressors. Infection workup continued to be negative, and antibiotics were discontinued. Adrenal insufficiency was then considered, and the patient underwent a stim test, that showed possible adrenal insufficiency. The patient was placed on a stress dose of steroids initially, which was later tapered. At the time of discharge, she was placed PATIENT'S NAME: JAYSON TUTTLE [facility] AGE: 71 Y [address] ROOM: [place] [address] LOCATION: GPCU ADMIT DATE: 11/13/2016 Discharge Summary DISCHARGE DATE: 11/28/2016 FAMILY PHYSICIAN: Alejandro Alanis MD ATTENDING PHYSICIAN: Phyllis Fournier on prednisone 5 mg daily with good blood pressure control. The patient has end-stage renal disease and undergoes hemodialysis. She underwent hemodialysis during this admission per Renal's recommendations. She also had an a right arm AV fistula placed by Dr. Goodman. Postop course was uneventful. She has a history of paroxysmal atrial fibrillation. Cardiology was involved during this admission and followed up with the patient. She was stable from a Cardiology perspective. She is also on long-term anticoagulation for her atrial fibrillation history. The patient had anemia, that was concerning for GI blood loss. EGD was done by GI, that showed duodenal ulcer, that was nonbleeding. She was then placed back on her Eliquis, and hemoglobin stayed stable during the rest of the hospital course. The patient was evaluated by me on 11/27/2016. It was found that the patient had generalized weakness. An additional L-spine and thoracic CT scan was done, that showed degenerative changes but no acute changes. The patient then continued to do well, and she was discharged to [facility] in stable condition. DISCHARGE INSTRUCTIONS: The patient was discharged to [facility] in stable condition. Follow up with Dr. Alejandro Alanis in 3-4 days' time. PCP to check a CBC and a BMP at followup. The patient was asked to call PCP if blood sugar is more than or equal to 400 on 2 occasions. Follow up with Dr. Goodman in 2 weeks. Follow up with Dr. Davies in 2 weeks. Hemodialysis per Nephrology's schedule. The patient is a full code patient. She is on an 1800-kilocalorie ADA diet. Calorie count is not needed. She is not n.p.o. PT and OT to evaluate and treat as indicated. O2 p.r.n. to keep sats more than 90%. The patient needs Accu-Cheks a.c. and h.s. [facility] nurse to follow up with the patient. She has a tunneled hemodialysis catheter cares per Renal. Does not have a urinary catheter. Rehab potential is poor. Discharge potential is poor. The patient and family aware of condition, prognosis, and were updated by me. May crush appropriate medications. DISCHARGE MEDICATIONS: 1. Allopurinol 200 mg p.o. daily for gout. 2. Amiodarone 200 mg p.o. daily for atrial fibrillation. 3. Eliquis 5 mg p.o. b.i.d., dose increased per Cardiology. 4. Aspirin 81 mg p.o. daily for CAD. 5. Lipitor 40 mg p.o. q.h.s. for CAD. 6. Flonase 2 sprays to each nostril every night at bedtime for dry nose. PATIENT'S NAME: JAYSON TUTTLE [facility] AGE: 71 Y [address] ROOM: [id number] [place], [place] [address] LOCATION: GPCU ADMIT DATE: 11/13/2016 Discharge Summary DISCHARGE DATE: 11/28/2016 FAMILY PHYSICIAN: Alejandro Alanis MD ATTENDING PHYSICIAN: Phyllis Fournier 7. NovoLog 10 units subcutaneous 3 times daily with meals for diabetes mellitus. 8. NovoLog moderate sliding scale insulin subcu before meals and at bedtime for diabetes mellitus. 9. Levemir 35 units subcutaneous at h.s. for diabetes mellitus, dose decreased. 10. Levothyroxine 150 mcg p.o. q.a.m. for hypothyroidism, dose increased. 11. Lopressor 25 mg p.o. b.i.d. for hypertension. 12. Protonix 40 mg p.o. b.i.d. for GERD and duodenal ulcer, dose increased. 13. MiraLAX 17 g p.o. b.i.d. for constipation. 14. Effexor 150 mg p.o. daily for depression. 15. Prednisone 5 mg p.o. daily for adrenal insufficiency, new medication. 16. Tylenol 650 mg p.o. q.6 hours p.r.n. pain. 17. Stuart 5/325 mg 1-2 tabs p.o. q.4 hours p.r.n. pain per home regimen. 18. Dulcolax 10 mg rectally every day p.r.n. constipation. 19. Clonidine 0.1 mg p.o. every 6 hours p.r.n. systolic blood pressure greater than 180. 20. Glucose 16 g p.o. daily p.r.n. hypoglycemia. 21. Colace 100 mg p.o. b.i.d. for constipation. 22. Glucagon 1 mg subcu p.r.n. hypoglycemia. 23. Robitussin 10 mL p.o. q.4 hours p.r.n. cough. 24. Milk of magnesia 30 mL p.o. daily p.r.n. constipation. 25. Nitrostat 0.4 mg sublingual q.5 minutes p.r.n. chest pain, maximum 3 doses. 26. Nystatin 1 application topically as needed p.r.n. skin rash. 27. Zofran 4 mg p.o. q.4 hours p.r.n. nausea. 28. Simethicone liquid 30 mL p.o. q.6 hours p.r.n. indigestion. 29. Preparation H Ointment 1 application topically 4 times daily p.r.n. hemorrhoids. This patient was managed by hospitalist, Nephrology, Infectious Disease, Vascular Surgery, Gastroenterology, and Cardiology teams during this admission. JC PARIKH MD MT/modl /[id number] CC: Alejandro Alanis MD d: 11/29/16 0202 t: 12/13/16 2352, DISCHARGE SUMMARY
--- NOTE | ~2016-11-13 | ER ---
PATIENT'S NAME: JAYSON TUTTLE [facility] AGE: 71 Y [address] ROOM: [place] [address] LOCATION: GPCU ADMIT DATE: 11/13/2016 ER/Outpatient Report DISCHARGE DATE: FAMILY PHYSICIAN: Alejandro Alanis MD ATTENDING PHYSICIAN: JELENA FOURNIER CHIEF COMPLAINT: Low blood pressure and syncope. HPI: The patient was on dialysis today when she was able to complete her run almost. She became hypotensive with systolic blood pressures in the 50s and fast heart rates per report from the dialysis center. She was given some fluid back and did appear to wake up somewhat. She has a history of low blood pressures and appears to run baseline around 90-100 systolic. She has multiple medical conditions as well. She does have a history of some cardiac disease and, in fact, has a ventricular pacing device. She denies any chest pain with this. She does not recall the loss of consciousness, which was reported to last about 30 seconds. 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 This has caused her to have significant bruising underneath the left arm from the lift straps. The patient denies any other issues and notes that she typically does feel very tired and remains tired after a dialysis session. She recently started dialysis in August. She did not have any falls associated with this. She denies any fevers or anything else of that nature recently, but the family members do note that she has had a cough of late. There are no other concerns related to this patient at this time. PAST MEDICAL HISTORY: Documented on the record and reviewed by me. SOCIAL HISTORY: Documented on the record and reviewed by me. MEDICATIONS: Documented on the record and reviewed by me. ALLERGIES: DOCUMENTED ON THE RECORD AND REVIEWED BY ME. REVIEW OF SYSTEMS: All systems were reviewed and negative except as noted in the HPI. PHYSICAL EXAMINATION: VITAL SIGNS: Blood pressure 101/50, pulse 84, respiratory rate is 18, PATIENT'S NAME: JAYSON TUTTLE [facility] AGE: 71 Y [address] ROOM: [place] [address] LOCATION: GPCU ADMIT DATE: 11/13/2016 ER/Outpatient Report DISCHARGE DATE: FAMILY PHYSICIAN: Alejandro Alanis MD ATTENDING PHYSICIAN: JELENA FOURNIER temperature 97.4, SpO2 is 95% on room air, weight is 112.5 kg, pain is rated at 0/10. GENERAL: Age-appropriate obese white female, resting on the exam table appearing very tired with no acute pain or distress. NEURO: The patient is awake. She has slowed, but appropriate mentation and speaks without any deficits. She follows commands in all extremities. No focal deficits or asymmetry appreciated on exam. HEENT: Normocephalic, atraumatic. The eyes are PERRL. The oropharynx is clear. NECK: Supple. Trachea is midline. CHEST/HEART: Regular rate and rhythm with no murmurs appreciated. LUNGS: Clear to auscultation in all lung corado with no rhonchi, wheezes, or rales. ABDOMEN: Soft, nontender, nondistended but obese. The back is nontender to palpation throughout. No CVA tenderness. There is very minimal erythema over the sacrum with no skin breakdown. EXTREMITIES: Notable for some peripheral edema most prominent in the lower extremities. The chest wall does have a dialysis catheter in place. SKIN: Notable for a very large area of ecchymosis underneath the left axilla. No significant swelling associated with that. LABS AND X-RAYS: Chest x-ray with no clear evidence of pneumonia or infiltrate per my read. EKG initially with some baseline variability. However, no significant ST- segment changes that meet criteria for ischemia as compared to prior EKG from 11/09/2016. There is some ST-segment elevation in lead III that does not meet criteria. There is some ST-segment depression intermittently in lead I. No J- point elevation in aVR is appreciated. Significant morphology changes compared to August and July of last fall with the pacer. Procalcitonin is elevated at 2.42. Sodium is 127, potassium 4.2, chloride is 89, CO2 is 21, BUN is 41, creatinine is 3.2. LFTs are notable for alkaline phosphatase of 530, AST of 91, ALT of 52. GFR is estimated at 14. CK-MB is 6.6, troponin is 0.177, CRP 16.4, free T4 is 1.7. TSH is 9.09. WBC is 15.4 with 12.9 neutrophils, hemoglobin 13.0, and platelets are 225, INR is 1.0. Lactate is elevated at 3.7, repeat down to 2.4. Repeat troponin was downtrending at 1.56. Sodium improved to 129, potassium decreased to 3.7 and anion gap had narrowed some. Blood sugar remains slightly elevated. No other acute issues. IMPRESSION: 1. Sepsis, possible urinary tract infection versus unknown source. 2. Lactic acidemia with an elevated anion gap. 3. Elevated TSH and free T4, likely iatrogenic. 4. Hyponatremia. PATIENT'S NAME: JAYSON TUTTLE [facility] AGE: 71 Y [address] ROOM: [place] [address] LOCATION: GPCU ADMIT DATE: 11/13/2016 ER/Outpatient Report DISCHARGE DATE: FAMILY PHYSICIAN: Alejandro Alanis MD ATTENDING PHYSICIAN: JELENA FOURNIER 5. Chronic renal failure. 6. Elevated transaminases. 7. Troponin elevation, improving. EMERGENCY DEPARTMENT COURSE: The patient was evaluated as above. She was given fluids and had some persistent hypotension despite that, multiple blood pressures in the 80s and 90s systolic while in the emergency department. No clear source at this time, possibly urinary. She was given cefepime for a presumed infection. She remained otherwise stable and, in fact, her mental status improved. It appears as though she is at her baseline from a hemodynamic standpoint. Her troponin did improve and her anion gap was narrowing with the administration of some fluids. I believe that she likely has an infection. Blood cultures were obtained. She will be admitted by the hospitalist Dr. Fournier for further evaluation and treatment of her sepsis with likely type 2 NSTEMI, which I am assuming has arisen from her syncopal episode with marked hypotension at that time. All questions were answered and the patient was admitted without further issues. MD MARYANN CHANCE/minh /[id number] d: 11/14/16 0040 t: 11/15/16 0835, OUTPATIENT REPORT
--- NOTE | ~2016-11-13 | CON ---
PATIENT'S NAME: JAYSON TUTTLE [facility] AGE: 71 Y [address] ROOM: [place] [address] LOCATION: GPCU ADMIT DATE: 11/13/2016 Consultation DISCHARGE DATE: FAMILY PHYSICIAN: Alejandro Alanis MD ATTENDING PHYSICIAN: JELENA FOURNIER DATE OF CONSULTATION: 11/15/2016 REFERRING PHYSICIAN: Cooper Starr MD REQUESTING PHYSICIAN: Jelena Fournier M.D. REASON FOR CONSULTATION: Candiduria. HISTORY OF PRESENT ILLNESS: Jayson is a pleasant 71-year-old female, whom I am asked to see today in consultation for further evaluation of candiduria. She was admitted on 11/13/2016 with complaint of weakness, dizziness, and hypotension occurring with dialysis. Her blood pressure was in the 50s, and she was near-syncopal. She has not had any fevers, chills, or sweats. She did have some elevation of the white count and elevated procalcitonin on admission. She was begun on Zosyn. She currently feels much better today. She has had a cough for the last 4 weeks or so, but denies any major diarrhea. She is currently on Zosyn. PAST MEDICAL HISTORY: End-stage renal disease, on dialysis for 2 months, status post right subclavian dialysis catheter placement; paroxysmal atrial fibrillation; coronary artery disease; type 2 diabetes; hypertension; obesity; and venous insufficiency. CURRENT MEDICATIONS: See the MAR for current listing. Antibiotics are as noted above. ALLERGIES: NONE NOTED. FAMILY HISTORY: Significant for diabetes. SOCIAL HISTORY: PATIENT'S NAME: JAYSON TUTTLE [facility] AGE: 71 Y [address] ROOM: [address] [place] [id number] LOCATION: GPCU ADMIT DATE: 11/13/2016 Consultation DISCHARGE DATE: FAMILY PHYSICIAN: Alejandro Alanis MD ATTENDING PHYSICIAN: JELENA FOURNIER No history of alcohol or tobacco abuse. REVIEW OF SYSTEMS: A complete review of systems was carried out, and was remarkable only as noted. Please refer to the admission history and physical for details. OBJECTIVE: GENERAL: She appeared comfortable and was in no distress. VITAL SIGNS: Temperature was 36.7, blood pressure 111/48, and pulse 60. HEENT: Posterior pharynx clear, no adenopathy or thyromegaly. Cranial nerves were intact. NECK: Supple. CHEST: Clear to auscultation. CARDIOVASCULAR: Regular rate and rhythm without S3, S4, or murmur. ABDOMEN: Soft, nontender, without hepatosplenomegaly or masses. EXTREMITIES: Chronic venous stasis changes in both lower extremities were noted. NEUROLOGIC: Strength seemed somewhat diminished in the extremities globally, no focal weakness. Sensation grossly intact. PSYCHIATRIC: Behavior and affect appropriate. LABORATORY DATA: Creatinine 4.6, alkaline phosphatase 530, AST 91, ALT 52, BNP 1390, uric acid 14.3. White count 8.5 - was 15.4 on admission. The procalcitonin was 2.42. Urinalysis showed a packed field of white cells, 50-100 red cells. MICROBIOLOGY: Stool culture, 11/13/2016, shows normal tirso. Blood cultures x1, 11/14/2016, show no growth to date. Blood cultures x2, 11/13/2016, show no growth to date. Stool for C. diff, 11/13/2016, is negative. Urine culture, 11/14/2016, shows 10,000 to 50,000 Gram-negative bacteria, 50,000 to 100,000 Guillermina. IMPRESSION: 1. Transient hypotension - her white count and procalcitonin were somewhat elevated, but this is difficult to interpret in a patient with acute stress reaction and end-stage renal disease. She does not have strong signs for infection at this time or an obvious focus of infection. This is certainly a common finding in patients on dialysis. Her symptoms do appear to have resolved with the supportive care. I note the lack of fever. 2. Pyuria and candiduria - this is also difficult to interpret in a patient with end-stage renal disease who makes very little urine. Normally, we would not treat urine colonization, particularly with the yeast. She has multiple organisms there, suggesting contamination. This is unlikely to be the cause of her recent illness. PATIENT'S NAME: JAYSON TUTTLE [facility] AGE: 71 Y [address] ROOM: [place] [address] LOCATION: GPCU ADMIT DATE: 11/13/2016 Consultation DISCHARGE DATE: FAMILY PHYSICIAN: Alejandro Alanis MD ATTENDING PHYSICIAN: JELENA FOURNIER 3. Other diagnoses are stable, as noted above. PLAN: At this point, I feel we can stop antibiotics and observe. We will stop the Zosyn and monitor for new fever or other signs of infection. If she does develop further fevers, then we can repeat the urine and blood cultures. When she is improved, she could discharge, and we would be available to see her back on a p.r.n. basis. Please call with any questions or problems at . MD OLI GUY/modl /[id number] CC: Jelena Fournier MD d: 11/15/16 2347 t: 11/16/16 0813, CONSULTATION REPORT
[~2016-11-13 12:10] MED LIST changes: -ALOE VESTA226 GM TOP; -BETADINE SOLUT118 ML TOP; -CATAPRES0.1 MG PO; -DELTASONE5 MG PO; -GLUCAGEN1 M1 SUB-Q; -GLUCOSE4 GM PO; -LOPRESSOR25 MG PO; -MAG119MX PO; -MILK OF MA400 MG/5 M PO; -NEURONTIN100 MG PO; -PREMARIN VAG30 GM NOSE; -PRO-STAT AWC L887 ML PO; -ROBITUSSIN DM120 ML PO
[2016-11-13 12:53] LABS: BASOPHIL # 0.1 K/uL (0.0-0.2); BASOPHIL % 0.3 %; EOSINOPHIL # 0.1 K/uL (0.0-0.5); EOSINOPHIL % 0.5 %; IMMATURE GRANULOCYTE # 0.2 K/uL (0.0-0.3); IMMATURE GRANULOCYTE % 1.2 %; LYMPHOCYTE # 1.2 K/uL (0.8-4.0); LYMPHOCYTE % 7.8 %; MONOCYTE # 0.9 K/uL (0.0-1.0); MONOCYTE % 6.1 %; MPV 9.6 fl (9.4-12.4); NEUTROPHIL # (ANC) 12.9 K/uL (1.8-7.8); NEUTROPHIL % 84.1 %; NRBC % 0 /100WBC (0-0.00); PLATELET COUNT 225 K/uL (150-450); RDW-CV 19.6 % (11.9-14.6); WBC 15.4 K/uL (4.0-11.0)
[2016-11-13 12:54] LABS: HEMATOCRIT 41.3 % (33.0-46.0); MCH 30.7 pg (27.0-34.0); MCHC 31.5 gm/dL (32.0-36.5); MCV 97.4 fl (83.0-98.0); RBC 4.24 M/uL (3.50-5.50)
[2016-11-13 13:00] LABS: PROTIME 10.3 SECONDS (9.6-11.1); PTT 36 SECONDS (25-32)
[2016-11-13 13:17] LABS: CALCIUM 8.9 mg/dL (8.5-10.5); CREATININE 3.2 mg/dL (0.5-1.1)
[2016-11-13 13:18] LABS: ANION GAP 21.2 (10.0-19.0); POTASSIUM 4.2 mMol/L (3.7-5.1); TOTAL BILIRUBIN 0.9 mg/dL (0.0-1.5); TOTAL PROTEIN 10.1 g/dL (6.0-8.4)
[2016-11-13 15:21] LABS: ALBUMIN 2.5 gm/dL (3.5-5.0); ANION GAP 15.7 (10.0-19.0); CALCIUM 8.3 mg/dL (8.5-10.5); CREATININE 3.3 mg/dL (0.5-1.1); PHOSPHORUS 4.6 mg/dL (2.5-4.9); POTASSIUM 3.7 mMol/L (3.7-5.1)
[2016-11-13] MEDS ORDERED: PREMARIN VAG30 GM NOSE (20:00)
[2016-11-13] MEDS ORDERED: ALOE VESTA226 GM TOP (20:01)
[2016-11-13] MEDS ORDERED: ROBITUSSIN DM120 ML PO (20:02)
[2016-11-13] MEDS ORDERED: MILK OF MA400 MG/5 M PO (20:03)
[2016-11-13] MEDS ORDERED: GLUCAGEN1 M1 SUB-Q (20:03)
[2016-11-13] MEDS ORDERED: GLUCOSE4 GM PO (20:04)
[2016-11-14 03:59] LABS: BASOPHIL % 0.4 %; EOSINOPHIL # 0.2 K/uL (0.0-0.5); EOSINOPHIL % 2.2 %; HEMOGLOBIN 9.8 g/dL (10.0-15.0); IMMATURE GRANULOCYTE # 0.1 K/uL (0.0-0.3); IMMATURE GRANULOCYTE % 0.7 %; LYMPHOCYTE # 1.5 K/uL (0.8-4.0); LYMPHOCYTE % 16.2 %; MCH 30.4 pg (27.0-34.0); MCHC 31.1 gm/dL (32.0-36.5); MCV 97.8 fl (83.0-98.0); MONOCYTE % 10.9 %; MPV 9.9 fl (9.4-12.4); NEUTROPHIL # (ANC) 6.4 K/uL (1.8-7.8); NEUTROPHIL % 69.6 %; NRBC % 0 /100WBC (0-0.00); PLATELET COUNT 184 K/uL (150-450); RBC 3.22 M/uL (3.50-5.50); RDW-CV 19.2 % (11.9-14.6); WBC 9.2 K/uL (4.0-11.0)
[2016-11-14 04:05] LABS: HEMATOCRIT 31.5 % (33.0-46.0)
[2016-11-14 04:11] LABS: ALBUMIN 2.2 gm/dL (3.5-5.0); ANION GAP 19.8 (10.0-19.0); CALCIUM 8.5 mg/dL (8.5-10.5); CREATININE 3.9 mg/dL (0.5-1.1); MAGNESIUM 2.4 mg/dL (1.3-2.6); PHOSPHORUS 5.7 mg/dL (2.5-4.9); POTASSIUM 3.8 mMol/L (3.7-5.1)
[2016-11-14 11:36] LABS: BILIRUBIN URINE NEGATIVE (NEGATIVE); BLOOD URINE 250 /UL (NEGATIVE); GLUCOSE URINE NEGATIVE (NEGATIVE); KETONE URINE 5 mg/dL (NEGATIVE); LEUKOCYTES URINE 500 /UL (NEGATIVE); NITRITE URINE POSITIVE (NEGATIVE); PROTEIN URINE 100 mg/dL (NEGATIVE); UROBILINOGEN URINE 1 mg/dL (NORMAL)
[2016-11-14 11:37] LABS: COLOR URINE BROWN (YELLOW); TURBIDITY URINE 3+ (CLEAR)
[2016-11-14 11:54] LABS: WBC URINE PACKED FIELD #/HPF (NEGATIVE)
[2016-11-14 11:55] LABS: RBC URINE 50-100 #/HPF (NEGATIVE)
[2016-11-14 11:56] LABS: BACTERIA URINE MANY (NEGATIVE); MUCUS URINE 1+ (NEGATIVE)
[2016-11-15 04:58] LABS: HEMATOCRIT 28.3 % (33.0-46.0); HEMOGLOBIN 8.8 g/dL (10.0-15.0); MCH 30.6 pg (27.0-34.0); MCHC 31.1 gm/dL (32.0-36.5); MCV 98.3 fl (83.0-98.0); MPV 9.5 fl (9.4-12.4); PLATELET COUNT 170 K/uL (150-450); RBC 2.88 M/uL (3.50-5.50); WBC 8.5 K/uL (4.0-11.0)
[2016-11-15 05:14] LABS: ANION GAP 19.8 (10.0-19.0); CALCIUM 8.1 mg/dL (8.5-10.5); MAGNESIUM 2.4 mg/dL (1.3-2.6); PHOSPHORUS 6.7 mg/dL (2.5-4.9); POTASSIUM 3.8 mMol/L (3.7-5.1)
[2016-11-15 05:18] LABS: CREATININE 4.6 mg/dL (0.5-1.1)
[2016-11-15 05:38] LABS: ABSOLUTE NEUTROPHIL CT (ANC) 6.3 K/uL (1.8-7.8); BANDED NEUTROPHIL # 1.4 K/uL (0.0-0.1); BANDED NEUTROPHILS % 16 %; LYMPHOCYTE # 0.9 K/uL (0.8-4.0); LYMPHOCYTE % 11 %; MONOCYTE # 0.9 K/uL (0.0-1.0); SEGMENTED NEUTROPHIL # 4.9 K/uL (1.8-7.8); SEGMENTED NEUTROPHIL % 58 %
[2016-11-16 05:28] LABS: BASOPHIL # 0.1 K/uL (0.0-0.2); BASOPHIL % 0.7 %; EOSINOPHIL # 0.2 K/uL (0.0-0.5); EOSINOPHIL % 3.5 %; HEMATOCRIT 28.1 % (33.0-46.0); HEMOGLOBIN 8.9 g/dL (10.0-15.0); IMMATURE GRANULOCYTE # 0.1 K/uL (0.0-0.3); LYMPHOCYTE # 1.1 K/uL (0.8-4.0); LYMPHOCYTE % 16.4 %; MCH 30.9 pg (27.0-34.0); MCHC 31.7 gm/dL (32.0-36.5); MCV 97.6 fl (83.0-98.0); MONOCYTE # 0.9 K/uL (0.0-1.0); MONOCYTE % 13.3 %; MPV 9.5 fl (9.4-12.4); NEUTROPHIL # (ANC) 4.4 K/uL (1.8-7.8); NEUTROPHIL % 65.1 %; NRBC % 0 /100WBC (0-0.00); PLATELET COUNT 154 K/uL (150-450); RBC 2.88 M/uL (3.50-5.50); RDW-CV 18.8 % (11.9-14.6); WBC 6.8 K/uL (4.0-11.0)
[2016-11-16 05:41] LABS: ALBUMIN 2.8 gm/dL (3.5-5.0); ANION GAP 15.8 (10.0-19.0); CALCIUM 8.6 mg/dL (8.5-10.5); CREATININE 2.4 mg/dL (0.5-1.1); MAGNESIUM 2.3 mg/dL (1.3-2.6); PHOSPHORUS 3.6 mg/dL (2.5-4.9); POTASSIUM 3.8 mMol/L (3.7-5.1)
[2016-11-17 05:28] LABS: BASOPHIL # 0.1 K/uL (0.0-0.2); BASOPHIL % 0.4 %; EOSINOPHIL # 0.1 K/uL (0.0-0.5); EOSINOPHIL % 0.9 %; HEMATOCRIT 29.4 % (33.0-46.0); IMMATURE GRANULOCYTE # 0.1 K/uL (0.0-0.3); IMMATURE GRANULOCYTE % 0.4 %; LYMPHOCYTE # 1.4 K/uL (0.8-4.0); LYMPHOCYTE % 11.6 %; MCH 30.5 pg (27.0-34.0); MCHC 30.6 gm/dL (32.0-36.5); MCV 99.7 fl (83.0-98.0); MONOCYTE # 1.1 K/uL (0.0-1.0); MONOCYTE % 8.9 %; MPV 9.3 fl (9.4-12.4); NEUTROPHIL # (ANC) 9.4 K/uL (1.8-7.8); NEUTROPHIL % 77.8 %; NRBC % 0 /100WBC (0-0.00); PLATELET COUNT 170 K/uL (150-450); RBC 2.95 M/uL (3.50-5.50); RDW-CV 18.7 % (11.9-14.6); WBC 12.1 K/uL (4.0-11.0)
[2016-11-17 05:44] LABS: ALBUMIN 3.3 gm/dL (3.5-5.0); CREATININE 3.3 mg/dL (0.5-1.1); MAGNESIUM 2.2 mg/dL (1.3-2.6); PHOSPHORUS 4.4 mg/dL (2.5-4.9); POTASSIUM 3.9 mMol/L (3.7-5.1)
[2016-11-17 05:45] LABS: ANION GAP 18.9 (10.0-19.0)
[2016-11-17 15:39] LABS: BLOOD URINE 250 /UL (NEGATIVE); GLUCOSE URINE NEGATIVE (NEGATIVE); KETONE URINE NEGATIVE (NEGATIVE); LEUKOCYTES URINE 500 /UL (NEGATIVE); NITRITE URINE POSITIVE (NEGATIVE); PROTEIN URINE 100 mg/dL (NEGATIVE); UROBILINOGEN URINE 1 mg/dL (NORMAL)
[2016-11-17 16:10] LABS: COLOR URINE AMBER (YELLOW); TURBIDITY URINE 4+ (CLEAR)
[2016-11-17 16:14] LABS: WBC URINE PACKED FIELD #/HPF (NEGATIVE)
[2016-11-17 16:19] LABS: BACTERIA URINE FEW (NEGATIVE); YEAST URINE MANY (NEGATIVE)
[2016-11-18 05:54] LABS: ALBUMIN 3.3 gm/dL (3.5-5.0); ANION GAP 14.6 (10.0-19.0); CALCIUM 9.2 mg/dL (8.5-10.5); CREATININE 2.2 mg/dL (0.5-1.1); PHOSPHORUS 2.6 mg/dL (2.5-4.9); POTASSIUM 3.6 mMol/L (3.7-5.1)
[2016-11-18 05:59] LABS: BASOPHIL # 0.1 K/uL (0.0-0.2); BASOPHIL % 0.6 %; EOSINOPHIL # 0.4 K/uL (0.0-0.5); EOSINOPHIL % 3.6 %; HEMOGLOBIN 8.6 g/dL (10.0-15.0); IMMATURE GRANULOCYTE # 0.1 K/uL (0.0-0.3); IMMATURE GRANULOCYTE % 0.6 %; LYMPHOCYTE # 1.8 K/uL (0.8-4.0); LYMPHOCYTE % 17.9 %; MCH 30.7 pg (27.0-34.0); MCHC 30.7 gm/dL (32.0-36.5); MONOCYTE # 1.1 K/uL (0.0-1.0); MONOCYTE % 11.4 %; MPV 9.5 fl (9.4-12.4); NEUTROPHIL # (ANC) 6.5 K/uL (1.8-7.8); NEUTROPHIL % 65.9 %; NRBC % 0 /100WBC (0-0.00); PLATELET COUNT 144 K/uL (150-450); RDW-CV 18.8 % (11.9-14.6); WBC 9.8 K/uL (4.0-11.0)
[2016-11-19 05:23] LABS: BASOPHIL # 0.1 K/uL (0.0-0.2); BASOPHIL % 0.6 %; EOSINOPHIL # 0.4 K/uL (0.0-0.5); EOSINOPHIL % 4.7 %; HEMATOCRIT 26.8 % (33.0-46.0); HEMOGLOBIN 8.3 g/dL (10.0-15.0); IMMATURE GRANULOCYTE % 0.4 %; LYMPHOCYTE # 1.6 K/uL (0.8-4.0); LYMPHOCYTE % 18.9 %; MCH 30.7 pg (27.0-34.0); MCV 99.3 fl (83.0-98.0); MONOCYTE # 0.9 K/uL (0.0-1.0); MONOCYTE % 10.8 %; MPV 9.5 fl (9.4-12.4); NEUTROPHIL # (ANC) 5.4 K/uL (1.8-7.8); NEUTROPHIL % 64.6 %; NRBC % 0 /100WBC (0-0.00); PLATELET COUNT 144 K/uL (150-450); RDW-CV 18.6 % (11.9-14.6); WBC 8.3 K/uL (4.0-11.0)
[2016-11-19 05:41] LABS: CALCIUM 9.2 mg/dL (8.5-10.5); MAGNESIUM 2.4 mg/dL (1.3-2.6); PHOSPHORUS 3.7 mg/dL (2.5-4.9)
[2016-11-19 05:42] LABS: CREATININE 3.6 mg/dL (0.5-1.1)
[2016-11-20 06:15] LABS: BASOPHIL # 0.1 K/uL (0.0-0.2); BASOPHIL % 0.9 %; EOSINOPHIL # 0.4 K/uL (0.0-0.5); EOSINOPHIL % 4.7 %; HEMATOCRIT 26.2 % (33.0-46.0); HEMOGLOBIN 8.2 g/dL (10.0-15.0); IMMATURE GRANULOCYTE % 0.5 %; LYMPHOCYTE # 1.6 K/uL (0.8-4.0); LYMPHOCYTE % 19.9 %; MCH 31.2 pg (27.0-34.0); MCHC 31.3 gm/dL (32.0-36.5); MCV 99.6 fl (83.0-98.0); MONOCYTE # 0.8 K/uL (0.0-1.0); MONOCYTE % 9.4 %; MPV 9.6 fl (9.4-12.4); NEUTROPHIL # (ANC) 5.2 K/uL (1.8-7.8); NEUTROPHIL % 64.6 %; NRBC % 0 /100WBC (0-0.00); PLATELET COUNT 166 K/uL (150-450); RBC 2.63 M/uL (3.50-5.50)
[2016-11-20 06:43] LABS: ANION GAP 21.6 (10.0-19.0); CALCIUM 8.9 mg/dL (8.5-10.5); MAGNESIUM 2.5 mg/dL (1.3-2.6); PHOSPHORUS 4.4 mg/dL (2.5-4.9); POTASSIUM 4.6 mMol/L (3.7-5.1)
[2016-11-20 06:45] LABS: CREATININE 4.6 mg/dL (0.5-1.1)
[2016-11-21 05:12] LABS: BASOPHIL % 0.2 %; HEMATOCRIT 27.3 % (33.0-46.0); HEMOGLOBIN 8.4 g/dL (10.0-15.0); IMMATURE GRANULOCYTE % 0.7 %; LYMPHOCYTE # 0.5 K/uL (0.8-4.0); LYMPHOCYTE % 9.1 %; MCHC 30.8 gm/dL (32.0-36.5); MCV 100.7 fl (83.0-98.0); MONOCYTE # 0.1 K/uL (0.0-1.0); MONOCYTE % 1.9 %; MPV 9.9 fl (9.4-12.4); NEUTROPHIL # (ANC) 5.1 K/uL (1.8-7.8); NEUTROPHIL % 88.1 %; NRBC % 0 /100WBC (0-0.00); PLATELET COUNT 157 K/uL (150-450); RBC 2.71 M/uL (3.50-5.50); RDW-CV 19.4 % (11.9-14.6); WBC 5.8 K/uL (4.0-11.0)
[2016-11-21 05:33] LABS: CALCIUM 8.8 mg/dL (8.5-10.5); CREATININE 2.7 mg/dL (0.5-1.1); MAGNESIUM 2.4 mg/dL (1.3-2.6); PHOSPHORUS 3.2 mg/dL (2.5-4.9); POTASSIUM 4.9 mMol/L (3.7-5.1)
[2016-11-21 05:34] LABS: ANION GAP 17.9 (10.0-19.0)
[2016-11-22 06:44] LABS: HEMATOCRIT 27.2 % (33.0-46.0); HEMOGLOBIN 8.6 g/dL (10.0-15.0); IMMATURE GRANULOCYTE % 0.6 %; LYMPHOCYTE # 0.6 K/uL (0.8-4.0); LYMPHOCYTE % 9.4 %; MCH 31.4 pg (27.0-34.0); MCHC 31.6 gm/dL (32.0-36.5); MCV 99.3 fl (83.0-98.0); MONOCYTE # 0.3 K/uL (0.0-1.0); MONOCYTE % 4.3 %; MPV 9.8 fl (9.4-12.4); NEUTROPHIL # (ANC) 5.8 K/uL (1.8-7.8); NEUTROPHIL % 85.7 %; NRBC % 0 /100WBC (0-0.00); PLATELET COUNT 171 K/uL (150-450); RBC 2.74 M/uL (3.50-5.50); RDW-CV 19.2 % (11.9-14.6); WBC 6.7 K/uL (4.0-11.0)
[2016-11-22 07:01] LABS: ALBUMIN 3.9 gm/dL (3.5-5.0); CALCIUM 9.5 mg/dL (8.5-10.5); CREATININE 3.4 mg/dL (0.5-1.1); MAGNESIUM 2.5 mg/dL (1.3-2.6); PHOSPHORUS 3.9 mg/dL (2.5-4.9)
[2016-11-22 17:54] LABS: PROTIME 10.7 SECONDS (9.6-11.1)
[2016-11-22 18:02] LABS: ANION GAP 14.8 (10.0-19.0); CALCIUM 9.3 mg/dL (8.5-10.5); POTASSIUM 3.8 mMol/L (3.7-5.1); TOTAL PROTEIN 8.5 g/dL (6.0-8.4)
[2016-11-22 18:03] LABS: CREATININE 1.6 mg/dL (0.5-1.1); TOTAL BILIRUBIN 1.1 mg/dL (0.0-1.5)
[2016-11-24 03:57] LABS: HEMATOCRIT 27.7 % (33.0-46.0); HEMOGLOBIN 8.4 g/dL (10.0-15.0); MCH 31.5 pg (27.0-34.0); MCHC 30.3 gm/dL (32.0-36.5); MCV 103.7 fl (83.0-98.0); MPV 10.1 fl (9.4-12.4); PLATELET COUNT 174 K/uL (150-450); RBC 2.67 M/uL (3.50-5.50); RDW-CV 20.3 % (11.9-14.6); WBC 7.9 K/uL (4.0-11.0)
[2016-11-24 04:13] LABS: ALBUMIN 3.6 gm/dL (3.5-5.0); CALCIUM 9.2 mg/dL (8.5-10.5); MAGNESIUM 2.3 mg/dL (1.3-2.6); PHOSPHORUS 4.7 mg/dL (2.5-4.9)
[2016-11-24 04:32] LABS: ANION GAP 18.2 (10.0-19.0); CREATININE 3.2 mg/dL (0.5-1.1); POTASSIUM 5.2 mMol/L (3.7-5.1)
[2016-11-24 05:14] LABS: LYMPHOCYTE # 0.9 K/uL (0.8-4.0); LYMPHOCYTE % 11 %; MONOCYTE # 0.1 K/uL (0.0-1.0); SEGMENTED NEUTROPHIL % 88 %
[2016-11-26 06:07] LABS: EOSINOPHIL % 0.2 %; HEMATOCRIT 28.4 % (33.0-46.0); HEMOGLOBIN 8.6 g/dL (10.0-15.0); IMMATURE GRANULOCYTE % 0.6 %; LYMPHOCYTE # 0.8 K/uL (0.8-4.0); LYMPHOCYTE % 12.7 %; MCH 31.9 pg (27.0-34.0); MCHC 30.3 gm/dL (32.0-36.5); MCV 105.2 fl (83.0-98.0); MONOCYTE # 0.6 K/uL (0.0-1.0); MONOCYTE % 9.2 %; MPV 10.2 fl (9.4-12.4); NEUTROPHIL # (ANC) 5.1 K/uL (1.8-7.8); NEUTROPHIL % 77.3 %; NRBC % 0.3 /100WBC (0-0.00); PLATELET COUNT 180 K/uL (150-450); RDW-CV 20.5 % (11.9-14.6); WBC 6.6 K/uL (4.0-11.0)
[2016-11-26 06:19] LABS: ANION GAP 17.4 (10.0-19.0); CALCIUM 8.9 mg/dL (8.5-10.5); CREATININE 3.2 mg/dL (0.5-1.1); POTASSIUM 4.4 mMol/L (3.7-5.1)
[2016-11-28 05:41] LABS: HEMATOCRIT 27.9 % (33.0-46.0); HEMOGLOBIN 8.5 g/dL (10.0-15.0)
== END 2016-11-28 09:45 | DRG 853 ==
LOC: GMED 12:10 → GICU 15:21 → GPCU 15:21 → GICU 11-15 23:56 → GPCU 11-21 15:33
PROVIDERS: Emergency Medicine; Family Medicine; Internal Medicine; Internal Medicine Interventional Cardiology; Surgery Vascular Surgery; ADMIT Internal Medicine
DX: A41.9 Sepsis, unspecified organism (principal); R57.1 Hypovolemic shock; R65.21 Severe sepsis with septic shock; I13.2 Hypertensive heart and chronic kidney disease with heart failure and with stage 5 chronic kidney disease, or end stage renal disease; N18.6 End stage renal disease; K26.9 Duodenal ulcer, unspecified as acute or chronic, without hemorrhage or perforation; E11.22 Type 2 diabetes mellitus with diabetic chronic kidney disease; K92.2 Gastrointestinal hemorrhage, unspecified; E27.40 Unspecified adrenocortical insufficiency; I48.0 Paroxysmal atrial fibrillation; B37.3 Candidiasis of vulva and vagina; N39.0 Urinary tract infection, site not specified; D62 Acute posthemorrhagic anemia; I50.32 Chronic diastolic (congestive) heart failure; Z68.41 Body mass index [BMI] 40.0-44.9, adult; Z99.2 Dependence on renal dialysis; E11.40 Type 2 diabetes mellitus with diabetic neuropathy, unspecified; I25.10 Atherosclerotic heart disease of native coronary artery without angina pectoris; I27.2 Other secondary pulmonary hypertension; E03.9 Hypothyroidism, unspecified; K52.9 Noninfective gastroenteritis and colitis, unspecified; K57.30 Diverticulosis of large intestine without perforation or abscess without bleeding; D63.1 Anemia in chronic kidney disease; D50.9 Iron deficiency anemia, unspecified; E66.01 Morbid (severe) obesity due to excess calories; K64.8 Other hemorrhoids; M21.371 Foot drop, right foot; M21.372 Foot drop, left foot; E87.6 Hypokalemia; E11.65 Type 2 diabetes mellitus with hyperglycemia; K29.50 Unspecified chronic gastritis without bleeding; S20.212A Contusion of left front wall of thorax, initial encounter; W19.XXXA Unspecified fall, initial encounter; Z86.010 Personal history of colon polyps; Z79.4 Long term (current) use of insulin; Z95.0 Presence of cardiac pacemaker; Z79.01 Long term (current) use of anticoagulants
CPT/HCPCS: C1751; J0295; J0690; J0692; J0834; J1100; J1265; J1610; J1644; J1720; J1756; J1940; J2405; J2543; J2720; J7030; J7040; J7050; J7060; J7512; P9047; Q4081; Q9967

== ENCOUNTER → 2016-11-13 | Outpatient (CLI) | payer MEDICARE, OTHER ==
[~2016-11-13] MED LIST: **HUMALOG*100 UNIT/M SUB-Q; ALIGN4 MG PO; ALOE VESTA226 GM TOP; AMARYL1 MG PO; ASPIRIN (CHILDR81 MG PO; BETADINE SOLUT118 ML TOP; BETAPACE (GENER80 MG; BUMETANIDE2 MG PO; CATAPRES0.1 MG PO; CIPRO500 MG PO; COLACE100 MG PO; CORDARONE,PACE200 MG PO; COUMADIN ** IA5 MG PO; COUMADIN **IA7.5 MG PO; COZAAR100 MG PO; DELTASONE5 MG PO; DULCOLAX10 MG R; EFFEXOR XR 3737.5 MG PO; EFFEXOR XR150 MG PO; ELIQUIS5 MG PO; FEOSOL325 MG PO; FLONASE 50 MCG/16 GM NOSE; GLUCAGEN1 M1 SUB-Q; GLUCOSE4 GM PO; LASIX40 MG PO; LEVEMIR100 UNIT/1 SUB-Q; LEVOTHROID (S150 MCG PO; LIPITOR40 MG PO; LOPRESSOR100 MG PO; LOPRESSOR25 MG PO; LOSARTAN POTAS100 MG; MAG119MX PO; MILK OF MA400 MG/5 M PO; MILLIPRED5 MG; MIRALAX17 GM PO; NEURONTIN100 MG PO; NITROSTAT0.3 MG SL; NORCO 5-325 TA1 EACH PO; NORVASC5 MG; NOVOLOG100 UNIT/M SUB-Q; NYSTATIN1 EAC1 TOP; PREMARIN VAG30 GM NOSE; PREPARATION H O57 GM TOP; PRILOSEC20 MG PO; PRO-STAT AWC L887 ML PO; PROTONIX40 MG PO; ROBITUSSIN DM120 ML PO; SALINE SOLUTIO360 ML NOSE; SIMETHICONE100 ML PO; TYLENOL325 MG PO; ZAROXOLYN2.5 MG PO; ZOFRAN4 MG PO; ZYLOPRIM100 MG PO
== END | disposition disaster alternative care site (69) ==
LOC: GAMB 11:50
DX: I95.9 Hypotension, unspecified (principal); R53.1 Weakness; N18.3 Chronic kidney disease, stage 3 (moderate); E11.9 Type 2 diabetes mellitus without complications; F32.9 Major depressive disorder, single episode, unspecified; R69 Illness, unspecified; R40.20 Unspecified coma; R11.11 Vomiting without nausea; Z79.82 Long term (current) use of aspirin; Z79.4 Long term (current) use of insulin; Z79.01 Long term (current) use of anticoagulants; Z79.899 Other long term (current) drug therapy
CPT/HCPCS: A0422; A0425; A0427

== ENCOUNTER 2016-12-13 16:00 | Inpatient (IN) | payer MEDICARE, OTHER, MEDICAID ==
[~2016-12-13] VITALS: Ht 162.6 cm; Wt 115.5 kg
--- NOTE | ~2016-12-13 | ER ---
PATIENT'S NAME: JAYSON TUTTLE [facility] AGE: 71 Y [address] ROOM: [place] [address] LOCATION: GPCU ADMIT DATE: 12/13/2016 ER/Outpatient Report DISCHARGE DATE: FAMILY PHYSICIAN: Alejandro Alanis MD ATTENDING PHYSICIAN: ERIKA HARTMAN Time of Arrival: 1605 hours. Time of Evaluation: 1605 hours. CHIEF COMPLAINT: Decreased circulation, right hand. HISTORY OF PRESENT ILLNESS: The patient is a dialysis patient; had a fistula placed in the right upper arm on 11/23/2016. Has been having problems with cyanosis of her fingers since that time. She was seen yesterday at the clinic and determined that she need to have surgery to revise it, it was scheduled for December 19. Today, she is having increased pain, and the usp was concerned that it was darker in color than it had been. Dr. Goodman was contacted. He plans to take the patient back to surgery for revision, and Dr. Goodman wants the patient to stop here in the ER for quick evaluation. She denies having pain anywhere else. ALLERGIES: SHE HAS NO KNOWN ALLERGIES. CURRENT MEDICATIONS: On the chart and reviewed by me. PAST MEDICAL HISTORY: Chronic renal failure, paroxysmal atrial fibrillation, insulin-dependent diabetes, hypertension, hypothyroidism, hyperlipidemia, and dialysis shunt at the right arm. PAST SURGERIES: On her notes from the usp. SOCIAL HISTORY: She is currently a resident at [facility]. REVIEW OF SYSTEMS: All negative other than those mentioned in the HPI. PHYSICAL EXAMINATION: VITAL SIGNS: She weighed 115.1, blood pressure is 110/56, pulse is 65, respirations 20, temperature of 96.9, O2 saturations are 98% on room air. PATIENT'S NAME: JAYSON TUTTLE [facility] AGE: 71 Y [address] ROOM: [address] [address] LOCATION: GPCU ADMIT DATE: 12/13/2016 ER/Outpatient Report DISCHARGE DATE: FAMILY PHYSICIAN: Alejandro Alanis MD ATTENDING PHYSICIAN: ERIAK HARTMAN GENERAL: She is awake and alert and oriented x4. SKIN: [place], warm, and dry. RESPIRATIONS: Even and nonlabored. Lung sounds are clear throughout. HEART: Regular rate and rhythm. EXTREMITIES: Her right hand is cooler to touch than the left. She does have good sensation to the tip of her fingers and is able to move her fingers. She has strong radial pulse. Upon her arrival to the ER, Dr. Fournier, the hospitalist and Hoa, the nurse practitioner with Dr. Goodman arrived and evaluated the patient. Dr. Goodman was contacted; he evaluated the patient. IMPRESSION: Decreased circulation to the right hand. PLAN: The patient will be taken to surgery for care of Dr. Goodman. She is being admitted by the hospitalist staff. STEPHON BANERJEE APRN FOR MD JOSE ARMSTRONG/modl /[id number] d: 12/14/16 0003 t: 12/18/16 1237, OUTPATIENT REPORT
--- NOTE | ~2016-12-13 | DS ---
PATIENT'S NAME: JAYSON TUTTLE [facility] AGE: 71 Y [address] ROOM: [place] [address] LOCATION: GPCU ADMIT DATE: 12/13/2016 Discharge Summary DISCHARGE DATE: 12/15/2016 FAMILY PHYSICIAN: Alejandro Alanis MD ATTENDING PHYSICIAN: Maksim López PRINCIPAL DIAGNOSES: 1. Right hand ischemia. 2. End-stage renal disease, on hemodialysis. 3. Paroxysmal atrial fibrillation. 4. Adrenal insufficiency. 5. Type 2 diabetes. HOSPITAL COURSE: This is a 71-year-old female with end-stage renal disease on hemodialysis presents with right hand ischemia due to steal syndrome from her AV fistula site complications. The patient was emergently seen by Dr. Goodman, Vascular Surgery and is status post AV fistula ligation which significantly improved the symptoms soon after. The patient's right hand in the past 2 days looks good. At this point, the plan is to continue dialysis with her subclavian line. The patient will continue to follow up with Vascular Surgery as outpatient to monitor the fistula site. Otherwise, the patient is in good spirit today. Has no complaints. Readjusting her home insulin regimen and will be discharged on Levemir 40 units nightly plus 7 units of insulin with NovoLog with meals plus sliding scale insulin on top of that as needed. The patient is also to continue her home medications as previously described and will continue these. PHYSICAL EXAMINATION: GENERAL: The patient is awake, alert, oriented x3, in no apparent distress. VITAL SIGNS: Stable. HEART: S1, S2. Regular rate and rhythm. CHEST: Clear to auscultation bilaterally. EXTREMITIES: Right upper extremity with good capillary refill. With trace edema in the lower extremities. NEURO: Grossly nonfocal. MEDICATIONS: Per NOV. FOLLOWUP: Follow up with PCP in 1-2 weeks. She is also to follow up with Nephrology for some dialysis and Vascular Surgery, Dr. Goodman in 2 weeks time. Greater than 30 minutes were spent in discharge planning and facilitating. PATIENT'S NAME: JAYSON TUTTLE [facility] AGE: 71 Y [address] ROOM: [place] [address] LOCATION: GPCU ADMIT DATE: 12/13/2016 Discharge Summary DISCHARGE DATE: 12/15/2016 FAMILY PHYSICIAN: Alejandro Alanis MD ATTENDING PHYSICIAN: Maksim López BARKOT MD ARIAN TO/modl /[id number] d: 12/16/16 0634 t: 01/01/17 1418, DISCHARGE SUMMARY
--- NOTE | ~2016-12-13 | HP ---
PATIENT'S NAME: JAYSON TUTTLE [facility] AGE: 71 Y [address] ROOM: [place] [address] LOCATION: GPCU ADMIT DATE: 12/13/2016 History & Physical DISCHARGE DATE: FAMILY PHYSICIAN: Alejandro Alanis MD ATTENDING PHYSICIAN: ERIKA HARTMAN DATE OF SERVICE: CHIEF COMPLAINT: Right hand ischemia. HISTORY OF PRESENT ILLNESS: This is a 71-year-old female with history of end-stage renal disease on dialysis 3 times a week and uses right arm AV fistula, also has a history of type 2 diabetes, adrenal insufficiency, paroxysmal atrial fibrillation, who presents to the emergency room with complaints of right hand pain and ischemia. Of note, the patient has had a revision of her dialysis access over the right forearm recently, and had been having a close followup with Dr. Goodman. The patient reports that she started experiencing pain in her right hand and discoloration of her fingers over the last 2-3 days, which has progressively gotten worse. The patient today is being evaluated in the emergency room by Dr. Goodman and she is being prepped emergently and taken to the operating room for intervention. The patient otherwise denies any changes on her recent medications. Of note, her blood pressure and blood sugars have been okay, controlled. The patient denies any other symptoms other than the pain on her right hand. Denies any dizziness, lightheadedness, chest pain, shortness of breath, cough, or dyspnea. Denies any fever, chills, or dysuria symptoms as well. PAST MEDICAL HISTORY: 1. End-stage renal disease, on dialysis. 2. Adrenal insufficiency. 3. Paroxysmal atrial fibrillation. 4. Type 2 diabetes. FAMILY HISTORY: Significant for diabetes in both parents. SOCIAL HISTORY: The patient is a resident of a nursing facility at [facility]. Denies any history of alcohol, smoking, or drug use. REVIEW OF SYSTEMS: 10-point review of systems was conducted and was all negative except as mentioned in the HPI. PATIENT'S NAME: JAYSON TUTTLE [facility] AGE: 71 Y [address] ROOM: [place] [address] LOCATION: GPCU ADMIT DATE: 12/13/2016 History & Physical DISCHARGE DATE: FAMILY PHYSICIAN: Alejandro Alanis MD ATTENDING PHYSICIAN: ERIKA HARTMAN PHYSICAL EXAMINATION: VITAL SIGNS: Temperature 97.6, blood pressure 110/56, respiratory rate 18, and saturating 95% on room air. GENERAL: The patient is awake, alert, and oriented x3. In no apparent distress. HEAD: Normocephalic, atraumatic SKIN: Retracting of skin over the right hand and finger tips. CHEST: Clear to auscultation bilaterally. HEART: S1, S2. Regular rate and rhythm. ABDOMEN: Soft, nontender, nondistended. Positive bowel sounds. MUSCULOSKELETAL: No swelling or redness noted in all joints in upper and lower extremities. NEURO: Exam grossly nonfocal. HEENT: Moist mucous membranes. No scleral icterus or conjunctival pallor noted. ASSESSMENT AND PLAN: 1. Right hand ischemia. This is likely related to complications arising from her arteriovenous fistula site. The patient is emergently evaluated by Dr. Goodman and she is to be taken to the operating room for evaluation. 2. End-stage renal disease, on hemodialysis. We will have Dr. Nguyen involved and manage her during her hospital stay. 3. Type 2 diabetes. The patient has had a long history of difficult to control diabetes. We will at this point manage with sliding scale insulin and resume her basal insulin after initial blood work is back. 4. Paroxysmal atrial fibrillation. We will hold the patient's Eliquis and continue her metoprolol and amiodarone. 5. Adrenal insufficiency. We will continue her home prednisone at 5 mg daily and keep a close eye on vital signs and blood pressure and use stress dose steroids if and when needed. 6. Chronic diastolic congestive heart failure. The patient is asymptomatic from that standpoint. 7. Deep venous thrombosis prophylaxis. We will use SCDs. MD ARIAN BONILLA/minh /[id number] D: 018 T: 823 HISTORY & PHYSICAL
--- NOTE | ~2016-12-13 | CON ---
PATIENT'S NAME: JAYSON TUTTLE [facility] AGE: 71 Y [address] ROOM: [id number] [place], [place] [address] LOCATION: GPCU ADMIT DATE: 12/13/2016 Consultation DISCHARGE DATE: FAMILY PHYSICIAN: Alejandro Alanis MD ATTENDING PHYSICIAN: ERIKA HARTMAN DATE OF CONSULTATION: 12/14/2016 REFERRING PHYSICIAN: SONAL GOODMAN MD REASON FOR CONSULTATION: End-stage renal disease, management of hemodialysis. HISTORY OF PRESENT ILLNESS: A 71-year-old female with history of ESRD secondary to diabetic nephropathy, now on 4 times/week hemodialysis on Sunday, Sunday, Sunday, and Sunday at [facility]; hypertension; diabetes; diastolic congestive heart failure; diabetic nephropathy and neuropathy; and nonobstructive coronary artery disease, recently admitted to [facility] with loss of consciousness and hypotension. She has had a right upper arm AV fistula placed during that admission. Following the AV fistula placement, she was doing well; however for the last couple of days, she is feeling cold in her right hand with mottling and purple discoloration. She has complained about decrease in the hand background check coordinator strength, suspected of steal syndrome following the AVF placement. The patient has been evaluated by Dr. Goodman (Vascular Surgeon), and planned for emergent surgery with fistula ligation. Nephrology consultation has been called for ESRD and dialysis management. The patient was seen yesterday before surgery and her hand looked purple, mottled, and cold as mentioned above, and she was mentioning significant pain and decrease in the sensation and strength. However, today after fistula ligation surgery, her hand looks more warm, red, and hand background check coordinator strength is much better. She generally goes to dialysis for Sunday, Sunday, Sunday, Sunday as per 4 days a week her dialysis session to our [facility], but she missed her Sunday's dialysis session because of doctor's appointment. We plan to dialyze her today with 3K bath for 3 hours and we will plan for 2-3 L of ultrafiltrate as per hemodynamics. She denied any chest pain, shortness of breath, orthopnea, or palpitation. Denied any nausea, vomiting, or diarrhea. No other symptoms at this point, and her hand symptoms are improving as mentioned above. REVIEW OF SYSTEMS: A 10-point review of systems has been done. All other pertinent points are negative except what is mentioned above. PAST MEDICAL HISTORY: 1. Hypertension. 2. Diabetes mellitus type 2, insulin dependent. 3. Diabetic nephropathy leading to ESRD, now on hemodialysis 4 days a week. 4. Diabetic neuropathy. 5. Hypothyroidism. 6. Nonobstructive coronary artery disease. 7. Sick sinus syndrome. 8. Paroxysmal atrial fibrillation, on long-term anticoagulation with Eliquis. 9. Esophagitis. 10. Decompensated heart failure with fluid overload. Multiple episodes of hospital admission for that. 11. Pulmonary hypertension. 12. Nonalcoholic steatohepatitis. 13. Morbid obesity. 14. Hypothyroidism.PATIENT'S NAME: JAYSON TUTTLE [facility] AGE: 71 Y [address] ROOM: [id number] [place] [id number] LOCATION: GPCU ADMIT DATE: 12/13/2016 Consultation DISCHARGE DATE: FAMILY PHYSICIAN: Alejandro Alanis MD ATTENDING PHYSICIAN: ERIKA HARTMAN PAST SURGICAL HISTORY: 1. Cholecystectomy. 2. Appendectomy. 3. Tunneled dialysis catheter placement. 4. Dual chamber pacemaker implantation in 2014. 5. Right total knee arthroplasty. 6. Right upper arm AV fistula placement 2 weeks back. SOCIAL HISTORY: Currently lives at [facility]. . No remote history of smoking, alcohol, or drug use. No other significant habits. FAMILY HISTORY: Noncontributory. No renal disease or dialysis in the parents; however, one of her sisters has been recently diagnosed with significant CKD and being evaluated for possible renal replacement therapy in the near future. Both the parents had diabetes. PHYSICAL EXAMINATION: VITAL SIGNS: Blood pressure 120/60, pulse 78, respiratory rate 16, temperature 98.6, and saturating at 94-96% on room air. GENERAL: Not in apparent distress. HEAD: Moist mucous membranes. Bilateral PERRLA, EOMI. NECK: No JVD, thyromegaly, or lymphadenopathy. CVS: S1 and S2 normal, regular rate and rhythm. No murmur, rub, or gallop. CHEST: Bilateral air entry equal. No wheeze or rales. ABDOMEN: Soft, nontender, and nondistended. Bowel sounds present. EXTREMITIES: Right hand which was purple, mottled, and cold yesterday is currently warm, red, and having strong pulse. No cyanosis, clubbing, or jaundice. Has at least 1 to 2+ dependent edema in bilateral lower extremities and sacral area. MUSCULOSKELETAL: No limitation of range of motion. SKIN: No pallor, cyanosis, or icterus. FENDER MECHANIC: Alert and oriented x3. No gross findings. LABORATORY DATA: WBC 5.5, hemoglobin 9.5, hematocrit 30.7, and platelet 132. Chemistry: Sodium 134, potassium 4.3, chloride 97, bicarbonate 27, BUN 34, and creatinine 0.5, calcium 8.4, glucose 342, albumin 2.8, phosphorus 4, and magnesium 2.3. INR 1. PT 11.PATIENT'S NAME: JAYSON TUTTLE [facility] AGE: 71 Y [address] ROOM: [place] [address] LOCATION: GPCU ADMIT DATE: 12/13/2016 Consultation DISCHARGE DATE: FAMILY PHYSICIAN: Alejandro Alanis MD ATTENDING PHYSICIAN: ERIKA HARTMAN ASSESSMENT AND PLAN: 1. End-stage renal disease secondary to diabetic nephropathy, now on chronic hemodialysis 4 times a week, Sunday, Sunday, Sunday, Sunday schedule at our [facility]. She missed her dialysis on Sunday, we plan to dialyze her today to make up for the lost session, and we will plan to dialyze on 3K bath for 3 hours with a goal ultrafiltration of 2-3 L as per hemodynamic response. We will closely monitor the patient's clinical status & hemodynamics on dialysis. 2. Steal phenomena with cold, mottled, and purple discoloration of Rt hand after AVF creation: status post fistula ligation last night, now symptoms has improved significantly. Vascular Surgery is on board. Further recommendation as per Vascular Surgery. 3. Severe pulmonary hypertension with hypotension during dialysis. We will avoid aggressive ultrafiltrate while on dialysis and we will limit the fluid removal up to 3.5 L a day per session. 4. Anemia of chronic disease, on iron and Mircera. We will replace Mircera with Epo and we will supplement 100mg of Venofer on HD today as well. 5. Paroxysmal atrial fibrillation, currently on amiodarone and also has dual- chamber pacemaker. Cardiology will follow up. On Long-term anticoagulation with Eliquis; which is currently on hold after fistula ligation POD# 1. 6. Type 2 diabetes, on sliding scale. Further as per the primary team. Thank you for allowing me to participate in this patient's care. We will closely monitor the patient's progress along with you. ABHISEKH ALEJANDRO HEADLEY MD /modl /[id number] d: 12/14/16 2144 t: 12/16/16 1246, CONSULTATION REPORT
--- NOTE | ~2016-12-13 | OR ---
PATIENT'S NAME: JAYSON TUTTLE [facility] AGE: 71 Y [address] ROOM: [place] [address] [facility] AD[facility] DATE: 12/13/2016 OR/Procedure Report DISCHARGE DATE: FAMILY PHYSICIAN: Alejandro Alanis MD ATTENDING PHYSICIAN: ERIKA HARTMAN SURGEON: Kel Goodman MD STEAMING CABINET TENDER: DATE OF PROCEDURE: 12/13/2016 PREOPERATIVE DIAGNOSIS: Steal syndrome from right brachiocephalic fistula. POSTOPERATIVE DIAGNOSIS: Steal syndrome from right brachiocephalic fistula. PROCEDURE: Ligation of right brachiocephalic fistula. MULTIMEDIA JOURNALIST: . ANESTHESIA: General. ESTIMATED BLOOD LOSS: 5 mL. FINDINGS: Improvement in pulse in the hand after ligation of fistula. DESCRIPTION OF PROCEDURE: The patient was brought to the operating room, placed supine on operating table, placed under anesthesia, prepped and draped in a sterile manner. Preoperative time-out was performed. The patient received preoperative antibiotics. We made a transverse incision in the antecubital region dissected down found the cephalic vein ligated with 2 large clips as well as a silk tie. After ligation, the pulse became much stronger in the hand and the hand became much warmer. The wound was irrigated and closed with deep layers with 2-0 and 3-0 Vicryl and skin was closed with running 4-0 Monocryl. The patient tolerated the procedure well and transferred to recovery room and then back to the floor. KEL GOODMAN MD FKM/modl /[id number] d: 12/14/16 0044 t: 12/18/16 1516, OPERATIVE SUMMARY
[~2016-12-13 16:00] MED LIST changes: +ALOE VESTA226 GM TOP; +GLUCAGEN1 M1 SUB-Q; +GLUCOSE4 GM PO; +MILK OF MA400 MG/5 M PO; +PREMARIN VAG30 GM NOSE; +ROBITUSSIN DM120 ML PO
[2016-12-13 17:04] LABS: BASOPHIL % 0.6 %; EOSINOPHIL # 0.2 K/uL (0.0-0.5); EOSINOPHIL % 2.7 %; HEMOGLOBIN 11.4 g/dL (10.0-15.0); IMMATURE GRANULOCYTE % 0.6 %; LYMPHOCYTE # 1.2 K/uL (0.8-4.0); LYMPHOCYTE % 17.1 %; MCHC 31.3 gm/dL (32.0-36.5); MONOCYTE # 0.6 K/uL (0.0-1.0); MONOCYTE % 8.6 %; MPV 9.4 fl (9.4-12.4); NEUTROPHIL # (ANC) 4.7 K/uL (1.8-7.8); NEUTROPHIL % 70.4 %; NRBC % 0 /100WBC (0-0.00); PLATELET COUNT 145 K/uL (150-450); RDW-CV 18.7 % (11.9-14.6); WBC 6.7 K/uL (4.0-11.0)
[2016-12-13 17:05] LABS: HEMATOCRIT 36.4 % (33.0-46.0); MCH 31.9 pg (27.0-34.0); RBC 3.57 M/uL (3.50-5.50)
[2016-12-13 17:17] LABS: PROTIME 10.6 SECONDS (9.6-11.1)
[2016-12-13 17:20] LABS: ALBUMIN 3.2 gm/dL (3.5-5.0); ANION GAP 13.9 (10.0-19.0); CALCIUM 8.6 mg/dL (8.5-10.5); CREATININE 1.9 mg/dL (0.5-1.1); MAGNESIUM 2.2 mg/dL (1.3-2.6); PHOSPHORUS 2.9 mg/dL (2.5-4.9); POTASSIUM 3.9 mMol/L (3.7-5.1)
[2016-12-13] MEDS ORDERED: NEURONTIN100 MG PO (19:35)
[2016-12-13] MEDS ORDERED: DELTASONE5 MG PO (19:36)
[2016-12-13] MEDS ORDERED: LOPRESSOR25 MG PO (19:38)
[2016-12-13] MEDS ORDERED: MAG119MX PO (19:40)
[2016-12-13] MEDS ORDERED: PRO-STAT AWC L887 ML PO (19:43)
[2016-12-13] MEDS ORDERED: BETADINE SOLUT118 ML TOP (19:47)
[2016-12-13] MEDS ORDERED: CATAPRES0.1 MG PO (19:54)
--- NOTE | 2016-12-13 21:01 | NUR ---
PATIENT ARRIVED TO FLOOR FROM RECOVERY AT 1915 VIA CART ACCOMPANIED BY BECCA RN AND FAMILY. VSS. HOSPITALIST SEEN DOWN IN ER. PATIENT HAD BEEN HAVING PAIN TO RIGHT ARM FOR ABOUT 2 WEEKS. IN THE PAST 2-3 DAYS PAIN WAS UP TO 10/10 AND PATIENT WAS STARTING TO HAVE NUMBNESS TO RIGHT HAND. UPON ASSESSMENTS FINGERS WERE DARK PURPLE AND ALMOST BLACK AND VERY COLD. DR MCMULLEN WAS CONSULTED AND PATIENT WAS BROUGHT TO SURGERY. THERE, PATIENT HAVE RIGHT ARM LIGATION OF FISTULA TO GAIN CIRCULATION TO HAND AND A TEMPORARY DIALYSIS LINE WAS PLACED IN THE RIGHT CHEST.
[2016-12-14 03:24] LABS: BASOPHIL % 0.4 %; EOSINOPHIL # 0.2 K/uL (0.0-0.5); EOSINOPHIL % 3.1 %; HEMATOCRIT 30.7 % (33.0-46.0); HEMOGLOBIN 9.5 g/dL (10.0-15.0); IMMATURE GRANULOCYTE % 0.2 %; LYMPHOCYTE # 1.1 K/uL (0.8-4.0); LYMPHOCYTE % 19.6 %; MCH 32.3 pg (27.0-34.0); MCHC 30.9 gm/dL (32.0-36.5); MCV 104.4 fl (83.0-98.0); MONOCYTE # 0.6 K/uL (0.0-1.0); MONOCYTE % 10.4 %; MPV 9.7 fl (9.4-12.4); NEUTROPHIL # (ANC) 3.7 K/uL (1.8-7.8); NEUTROPHIL % 66.3 %; NRBC % 0 /100WBC (0-0.00); PLATELET COUNT 132 K/uL (150-450); RBC 2.94 M/uL (3.50-5.50); RDW-CV 18.3 % (11.9-14.6); WBC 5.5 K/uL (4.0-11.0)
[2016-12-14 03:37] LABS: ALBUMIN 2.8 gm/dL (3.5-5.0); ANION GAP 14.3 (10.0-19.0); CALCIUM 8.4 mg/dL (8.5-10.5); CREATININE 2.5 mg/dL (0.5-1.1); MAGNESIUM 2.3 mg/dL (1.3-2.6); POTASSIUM 4.3 mMol/L (3.7-5.1)
--- NOTE | 2016-12-14 04:58 | NUR ---
Significant Event: PATIENT IS A/O X3. VSS. HR 70'S IN PACED RHYTHM. SBP 110-140'S. AFEBRILE. 02 SATS IN MID TO UPPER 90'S ON RA. C/O PAIN. TYLENOL GIVEN X1 WITH RELIEF. LUNGS CLEAR TO CLEAR/DIM THROUGHOUT. PATIENT IS NON-AMBULATORY/FULL LIFT. HAS BRACES TO LOWER EXTREMITIES CURRENTLY ON BUT NORMALLY OFF AT NIGHT. BOWELS ACTIVE. INCONTINENT BM X1. NO VOID THIS SHIFT. PATIENT DOES NOT PRODUCE URINE AT TIMES. DRESSING TO RIGHT ARM C/D/I. DOES HAVE SOME EXCORIATION TO GROINS. REDNESS TO BOTTOM BUT BLANCHABLE. ALOE APPLIED AND PATIENT TURNED Q2H. BRUISING TO BILATERAL ARMS. IV TO LEFT THUMB WITH NS AT TKO. ON IV ABX. SINCE FISTULA WAS CLAMPED, PATIENT HAD TEMPORARY DIALYSIS LINE PLACE RIGHT CHEST. PATIENT NUMBESS/TINGLING IMPROVED OVER SHIFT. ALMOST NONE AT ALL NOW. ALL PULSES ABLE TO BE DOPPLED. HAND WARM. CONTINUES TO HAVE 2-3+ EDEMA TO LOWER EXTREMITIES. ON ACHS ACCUCHECKS. Follow up: CONTINUE TO MONITOR PER PLAN OF CARE.
--- NOTE | 2016-12-14 13:43 | NUR ---
Introduced self and role of care management to pt and her daughter. Pt is familiar to me from previous admission and the plan will be to return back to [facility] when ready. She continues her dialysis ---. Will continue to follow and assist as needed.
--- NOTE | 2016-12-14 15:06 | NUR ---
Diabetes center note: 1000 Talked with patient, spouse and daughter at bedside. A1C 6.3 % which is much improved since past hospitalizations. Diabetes Assessment form provide to assess educational needs, daughter agrees to complete, will check with patient later in the day.
--- NOTE | 2016-12-14 15:33 | NUR ---
I did talk with Dr Goodman and pt can go back anytime from his standpoint. Pt is at dialysis so I will call Ernestine with [facility] and update her. WIll continue to follow.
--- NOTE | 2016-12-14 17:38 | NUR ---
Significant Event: TO HD FROM [id number], REMOVED 2L. PLAN FOR HD AGAIN TOMORROW. VSS AND RA. DENIES PAIN. AFEBRILE. REMOVE RT)ARM DRESSING TOMORROW PER VASCULAR. REPOSITIONED Q2H AND PRN WHILE ON THE FLOOR TODAY. IV ABX CONTINUE. Follow up: CONTINUE PLAN OF CARE; ? BACK TO THE [facility].
[2016-12-15 03:44] LABS: BASOPHIL % 0.4 %; EOSINOPHIL # 0.2 K/uL (0.0-0.5); EOSINOPHIL % 3.7 %; HEMATOCRIT 30.6 % (33.0-46.0); HEMOGLOBIN 9.3 g/dL (10.0-15.0); IMMATURE GRANULOCYTE % 0.2 %; LYMPHOCYTE # 1.7 K/uL (0.8-4.0); LYMPHOCYTE % 30.4 %; MCHC 30.4 gm/dL (32.0-36.5); MCV 105.2 fl (83.0-98.0); MONOCYTE # 0.7 K/uL (0.0-1.0); MONOCYTE % 12.3 %; MPV 9.9 fl (9.4-12.4); NRBC % 0 /100WBC (0-0.00); PLATELET COUNT 125 K/uL (150-450); RBC 2.91 M/uL (3.50-5.50); RDW-CV 18.2 % (11.9-14.6); WBC 5.6 K/uL (4.0-11.0)
[2016-12-15 03:51] LABS: PROTIME 10.9 SECONDS (9.6-11.1)
[2016-12-15 03:59] LABS: ALBUMIN 3.5 gm/dL (3.5-5.0); CREATININE 2.2 mg/dL (0.5-1.1); MAGNESIUM 2.1 mg/dL (1.3-2.6); PHOSPHORUS 3.2 mg/dL (2.5-4.9)
--- NOTE | 2016-12-15 04:43 | NUR ---
Significant Event: PATIENT IS ALERT AND ORIENTED AND VERY PLEASNT. SHE RESIDES IN A NURSING FACILITY AND IS A TOTAL LIFT. OPEN AREA TO BUTTOCK AND RIGHT PANNUS AREA. ROCIO Hines CALLS HOLLI . SPOUSE STAYS IN ROOM WITH HER. Follow up:
--- NOTE | 2016-12-15 12:03 | NUR ---
I did speak with pt and today. The plan is to return back to [facility] once done with dialysis and we have orders. I will update Ernestine carter I have orders and set up a time.
--- NOTE | 2016-12-15 16:55 | NUR ---
Patient was transfered back to [facility] at 1510 per SNF automation driver. She was taken to the front lobby in her own wheelchair. She is A&O x3. Follows commands. Equal strength in all extremities but has generalized weakness. Has chronic N/T to her bilateral lower legs and feet. R) arm has dialysis fistula. Fingers pink and warm with good capulary refill. Patient states R) arm has normal sensation without N/T. IV to L) thumb D/C'd @ 1500. Patient left the floor @ 0803 for dialysis & returned @ 1300. No void for this shift so far. Multiple skin issues. Bruising all over. Small open area between buttocks and under belly. Incontinent of stool. All of her personal belongings were sent home with the patient.
== END 2016-12-15 15:07 | DRG 252 ==
LOC: GMED 16:00 → G3N 16:31 → GPCU 16:31
PROVIDERS: ADMIT Internal Medicine
PROC: 05L90ZZ Occlusion of Right Brachial Vein, Open Approach (ICD-10-PCS; principal; 2016-12-13)
DX: T82.898A Other specified complication of vascular prosthetic devices, implants and grafts, initial encounter (principal); N18.6 End stage renal disease; I50.32 Chronic diastolic (congestive) heart failure; I12.0 Hypertensive chronic kidney disease with stage 5 chronic kidney disease or end stage renal disease; I27.2 Other secondary pulmonary hypertension; E27.40 Unspecified adrenocortical insufficiency; Z68.41 Body mass index [BMI] 40.0-44.9, adult; E03.9 Hypothyroidism, unspecified; I25.10 Atherosclerotic heart disease of native coronary artery without angina pectoris; Z99.2 Dependence on renal dialysis; I48.0 Paroxysmal atrial fibrillation; Z79.01 Long term (current) use of anticoagulants; I99.8 Other disorder of circulatory system; D63.8 Anemia in other chronic diseases classified elsewhere; E11.21 Type 2 diabetes mellitus with diabetic nephropathy; E78.5 Hyperlipidemia, unspecified; Z96.651 Presence of right artificial knee joint; E66.01 Morbid (severe) obesity due to excess calories
CPT/HCPCS: J0690; J1644; J1756; J2001; J7030; J7512; P9047; Q4081

== ENCOUNTER → 2017-05-19 | Emergency (ER) | payer MEDICARE, OTHER, MEDICAID ==
[~2017-05-19] MED LIST changes: +BETADINE SOLUT118 ML TOP; +CATAPRES0.1 MG PO; +DELTASONE5 MG PO; +LOPRESSOR25 MG PO; +MAG119MX PO; +NEURONTIN100 MG PO; +PRO-STAT AWC L887 ML PO
== END | disposition disaster alternative care site (69) ==
LOC: GAMB 22:29
DX: Z74.09 Other reduced mobility (principal); W18.39XA Other fall on same level, initial encounter; Z99.2 Dependence on renal dialysis

== ENCOUNTER → 2017-05-31 | Emergency (ER) | payer MEDICARE | END | disposition disaster alternative care site (69) | LOC: GAMB 13:15 | DX: R53.1 Weakness (principal) ==